=== PATIENT | male | born 1930 | race Caucasian/White ===

== ENCOUNTER 2018-06-11 20:27 | Inpatient (IN) ==
[2018-06-11] MEDS ORDERED: SODIUM CHLORIDE 1,000 ML IV STA (20:29)
--- NOTE | 2018-06-11 21:15 | ED.PDOC ---
General ED Provider: Dr. NIRMAL GRIFFIN Chief Complaint: Weakness Stated Complaint: Patient is brought by family with weakness for the past few days. Also complains of mildly productive cough without shortness of breath. He also states that his appatite has been poor and blood glucose has been going up. Uses Oral hypoglycemia medications. Time Seen by Physician: 21:12 Mode of Arrival: Ambulance Information Source: Patient, EMT Primary Care Provider: JAYSON RODRIGUEZ Nursing and Triage Documentation Reviewed and Agree: Yes Does patient meet sepsis criteria?: No System Inflammatory Response Syndrome: Temp 101F or Greater Sepsis Protocol: For patient's 13 years and over: Temp is 96.8 and below OR 101 and greater Pulse >90 BPM Resp >20/minute Acutely Altered Mental Status Are patient's symptoms suggestive of a new infection, such as: -Pneumonia -Skin, Soft Tissue -Endocarditis -UTI -Bone, Joint Infection -Implantable Device -Acute Abdominal Infection -Wound Infection -Meningitis -Blood Stream Catheter Infection -Unknown Review of Systems - Review Of Systems Constitutional: Reports: Weakness Respiratory: Reports: Cough (mildly productive of clear sputum ). Denies: Short of air, Stridor, Wheezing Cardiac: Reports: No symptoms GI: Reports: No symptoms : Reports: No symptoms Musculoskeletal: Reports: Other (weakness ) Neurological: Reports: No symptoms All Other Systems: Reviewed and Negative Past Medical History - Past Medical History Endocrine: Reports: DM 2, Dyslipidemia Cardiovascular: Reports: CAD, Hypertension, CHF Respiratory: Reports: None Hematological: Reports: None Gastrointestinal: Reports: None Genitourinary: Reports: None Neuro/Psych: Reports: CVA Musculoskeletal: Reports: Arthritis, Gout Cancer: Reports: None - Surgical History General Surgical History: Reports: CABG (x2), Stent - Family History Family History: Reports: Unknown - Social History Smoking Status: Former smoker Hx Substance Use: No Alcohol Screening: None - Immunizations Tetanus Shot up to Date: No Physical Exam - Physical Exam Appearance: Ill-appearing (weak appering ) Eyes: Conjunctiva inflammed (bilaterally with matting ) Neck: Supple Respiratory: Airway patent, Breath sounds clear, Breath sounds equal, Respirations nonlabored Cardiovascular: RRR, Pulses normal, No rub, No murmur GI/: Soft, Nontender, No masses, Bowel sounds normal, No Organomegaly Musculoskeletal: Normal strength, ROM intact, No edema, No calf tenderness Skin: Warm, Dry, Normal color Neurological: Sensation intact, Motor intact, Reflexes intact, Cranial nerves intact, Alert, Oriented Psychiatric: Anxious Interpretation - Radiology Interpretation Radiology Interpretation By: Radiologist Radiology Results: Negative Exam Interpreted: Portable CXR - Auto Damage Estimator Rate: Normal Rhythm: Sinus - EKG Interpretation Rate: Normal Rhythm: Sinus Ectopy: None [place]: NL ST Segment: Normal Interpretation: Sinus rhythm with 1st degree AV block Critical Care Note - Critical Care Note Total Time (mins): 0 Course - Course Hematology/Chemistry: 06/12/18 04:30 06/12/18 04:30 Orders, Labs, Meds: Lab Review 06/11/18 06/11/18 06/11/18 20:42 20:42 20:42 WBC 7.21 RBC 4.06 L Hgb 11.6 L Hct 33.4 L MCV 82.3 MCH 28.6 MCHC 34.7 RDW Coeff of Edwige 12.0 Plt Count 99 L Immature Gran % (Auto) 0.3 Neut % (Auto) 82.4 Lymph % (Auto) 6.0 L Republic % (Auto) 11.1 H Eos % (Auto) 0.1 Baso % (Auto) 0.1 Immature Gran # (Auto) 0.0 Neut # (Auto) 5.9 Lymph # (Auto) 0.4 L Republic # (Auto) 0.8 Eos # (Auto) 0.0 Baso # (Auto) 0.0 Puncture Site O2 Saturation ABG pH ABG pCO2 ABG pO2 ABG HCO3 ABG Total CO2 ABG Base Excess Alvaro Test FiO2 % Sodium 125 L Potassium 4.2 Chloride 93 L Carbon Dioxide 23 Anion Gap 13.2 BUN 13 Creatinine 0.90 Estimated GFR (MDRD) 80.00 BUN/Creatinine Ratio 14.44 Glucose 233 H Calcium 9.8 Total Bilirubin 1.1 AST 28 ALT 24 Alkaline Phosphatase 126 H Total Creatine Kinase Troponin I 0.0130 Total Protein 6.5 Albumin 2.9 L Globulin 3.6 Albumin/Globulin Ratio 0.81 TSH 2.120 Free T4 1.12 06/11/18 06/11/18 20:47 21:09 WBC RBC Hgb Hct MCV MCH MCHC RDW Coeff of Edwige Plt Count Immature Gran % (Auto) Neut % (Auto) Lymph % (Auto) Republic % (Auto) Eos % (Auto) Baso % (Auto) Immature Gran # (Auto) Neut # (Auto) Lymph # (Auto) Republic # (Auto) Eos # (Auto) Baso # (Auto) Puncture Site Rr O2 Saturation 93.0 L ABG pH 7.408 ABG pCO2 35.4 ABG pO2 66.0 L ABG HCO3 22.4 ABG Total CO2 23 ABG Base Excess -2 Alvaro Test + FiO2 % 21.0 Sodium Potassium Chloride Carbon Dioxide Anion Gap BUN Creatinine Estimated GFR (MDRD) BUN/Creatinine Ratio Glucose Calcium Total Bilirubin AST ALT Alkaline Phosphatase Total Creatine Kinase 52 Troponin I Total Protein Albumin Globulin Albumin/Globulin Ratio TSH Free T4 Orders Category Date Time Status ABG DRAW REQUEST Routine CARDIO 06/11/18 21:09 Completed EKG-(ED ONLY) Stat CARDIO 06/11/18 21:25 Completed ED IV/MEDIPORT/POWERPORT .ONCE EMERGENCY 06/11/18 20:29 Active ABG Stat LAB 06/11/18 21:09 Completed CBC W/ AUTO DIFF Stat LAB 06/11/18 20:42 Completed CK [CREATINE KINASE] Stat LAB 06/11/18 20:47 Completed COMPREHENSIVE METABOLIC PANEL Stat LAB 06/11/18 20:42 Completed FREE T4 (FREE THYROXINE) Stat LAB 06/11/18 20:42 Completed THYROID STIMULATING HORMONE Stat LAB 06/11/18 20:42 Completed TROPONIN I Stat LAB 06/11/18 20:42 Completed 0.9 % Sodium Chloride [Saline Flush] MEDS 06/11/18 20:29 Ordered 1 syr IVF PRN PRN Ciprofloxacin Opth Lia [Cipro 0.3% Opth Lia] MEDS 06/11/18 21:36 Discontinued 1 drop OP ONCE STA Sodium Chloride 0.9% [Sodium Chloride] 1,000 ml MEDS 06/11/18 20:29 Discontinued IV BOLUS CHEST, 1V AP ONLY Stat RADS 06/11/18 21:10 Completed Medications Generic Name Dose Route Start Last Admin Trade Name Freq PRN Reason Stop Dose Admin Acetaminophen 650 mg 06/11/18 23:40 Tylenol PO Q4H PRN mild pain Albuterol/Ipratropium 1 vial 06/11/18 23:40 Duoneb NEB RTTID PRN dyspnea Ciprofloxacin 2 drop 06/12/18 06:00 06/12/18 05:49 Cipro 0.3% Opth Lia OP 2 drop 5XD JUAN MANUEL Administration Enoxaparin Sodium 40 mg 06/12/18 09:00 Lovenox SUBCUT DAILY JUAN MANUEL Gabapentin 300 mg 06/12/18 09:00 Neurontin PO BID JUAN MANUEL Sodium Chloride 1,000 mls @ 60 mls/hr 06/11/18 23:46 06/12/18 00:38 Sodium Chloride IV 60 mls/hr .[id number] JUAN MANUEL Administration Metoprolol Succinate 50 mg 06/12/18 09:00 Toprol Xl PO DAILY JUAN MANUEL Non-Formulary Medication 2.5 mg 06/12/18 09:00 Lisinopril [Zestril] PO DAILY JUAN MANUEL Non-Formulary Medication 40 mg 06/12/18 09:00 Esomeprazole Magnesium [Nexium] PO DAILY JUAN MANUEL Non-Formulary Medication 1,000 mg 06/12/18 09:00 Metformin Hcl [Metformin Hcl] PO BID JUAN MANUEL Simvastatin 40 mg 06/12/18 09:00 Zocor PO DAILY JUAN MANUEL Sodium Chloride 1 syr 06/11/18 20:29 Saline Flush IVF PRN PRN To flush IV Sucralfate 1 gm 06/12/18 06:30 06/12/18 05:49 Carafate PO 1 gm ACHS JUAN MANUEL Administration Discontinued Medications Generic Name Dose Route Start Last Admin Trade Name Freq PRN Reason Stop Dose Admin Ciprofloxacin 1 drop 06/11/18 21:36 06/11/18 21:44 Cipro 0.3% Opth Lia OP 06/11/18 21:37 1 drop ONCE STA Administration Sodium Chloride 1,000 mls @ 1,000 mls/hr 06/11/18 20:29 06/11/18 21:17 Sodium Chloride IV 06/11/18 21:28 1,000 mls/hr BOLUS STA Administration Sodium Chloride 1,000 mls @ 75 mls/hr 06/11/18 23:45 06/11/18 23:51 Sodium Chloride IV Not Given .[id number] [facility] Vital Signs: Temp Pulse Resp BP Pulse Ox 06/11/18 22:20 99.7 F H 71 20 128/56 L 93 L 06/11/18 21:20 78 22 126/45 L 93 L 06/11/18 21:14 97.7 F 06/11/18 20:39 101.5 F H 83 22 126/45 L 94 L Departure - Departure Time of Disposition: 00:10 Disposition: ADMITTED INPATIENT Discharge Problem: Hyponatremia syndrome, Muscle weakness, Acute bacterial conjunctivitis of both eyes Condition: Stable Pt referred to PMD for follow-up: Yes IPMP verified?: No Allergies/Adverse Reactions: Allergies No Known Allergies Allergy (Unverified 08/21/17 09:58) Home Medications: Ambulatory Orders Gabapentin 300 mg PO BID 07/21/14 Metformin HCl 1,000 mg PO BID 07/21/14 Metoprolol Succinate 50 mg PO DAILY #30 07/21/14 Esomeprazole Magnesium [Nexium] 40 mg PO DAILY 06/11/18 Lisinopril [Zestril] 2.5 mg PO DAILY 06/11/18 Simvastatin [Zocor] 40 mg PO DAILY 06/11/18 Sucralfate [Carafate] 1 gm PO ACHS 06/11/18
[2018-06-11] MEDS ORDERED: GENTAK OPTH SOL OP STA (21:21)
--- NOTE | 2018-06-11 21:34 | DI ---
EXAMINATION: AP portable chest radiograph. HISTORY: Cough FINDINGS: There is chronic blunting left costophrenic angle that is unchanged since 04/22/2008. Mi nimal chronic opacities are suggested in the left lung base. The aorta is atherosclerotic. The hear t is mildly enlarged. 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 The bones are intact. No pne umothorax or pleural effusions are detected. IMPRESSION: Probable chronic pleural reaction blunting left costophrenic angle with subjacent pulmonary parenchym al scarring. No acute on chronic infiltrate cannot be entirely excluded. Consider correlation with CT. Aortic atherosclerosis, cardiomegaly, and prior sternotomy.
[2018-06-11] MEDS ORDERED: CIPRO 0.3% OPTH SOL OP STA (21:36)
[2018-06-11] MEDS ORDERED: DUONEB NEB PRN (23:40)
[2018-06-11] MEDS ORDERED: TYLENOL PO PRN (23:40)
[2018-06-11] MEDS ORDERED: SODIUM CHLORIDE 1,000 ML IV SCH (23:45)
[2018-06-12] MEDS: SODIUM CHLORIDE 1,000 ML IV SCH ×2 (00:38→22:57)
[2018-06-12 01:29] VITALS: BMI 23.2
[2018-06-12] MEDS: CARAFATE PO SCH ×4 (05:49→20:04)
[2018-06-12] MEDS: CIPRO 0.3% OPTH SOL OP SCH ×5 (05:49→20:04)
[2018-06-12] MEDS ORDERED: DECADRON 4 MG/ML SDV IM STA (08:25)
[2018-06-12] MEDS ORDERED: NON-FORMULARY MEDICATION (Metformin Hcl [Metformin Hcl] 1,000 MG) PO SCH (09:00)
[2018-06-12] MEDS ORDERED: NON-FORMULARY MEDICATION (Esomeprazole Magnesium [Nexium] 40 MG) PO SCH (09:00)
[2018-06-12] MEDS ORDERED: NON-FORMULARY MEDICATION (Lisinopril [Zestril] 2.5 MG) PO SCH (09:00)
[2018-06-12] MEDS: ROCEPHIN 1 GM in SODIUM CHLORIDE 50 ML IV SCH (09:27)
[2018-06-12] MEDS: ZESTRIL PO SCH (09:30)
[2018-06-12] MEDS: TOPROL XL PO SCH (09:30)
[2018-06-12] MEDS: NEURONTIN PO SCH ×2 (09:31→20:04)
[2018-06-12] MEDS: GLUCOPHAGE PO SCH ×2 (09:31→16:42)
[2018-06-12] MEDS: PROTONIX PO SCH (09:31)
[2018-06-12] MEDS: ZOCOR PO SCH (09:31)
--- NOTE | 2018-06-12 09:32 | PCM.PROG ---
Attending Provider: ATTENDING PROVIDER: Dr. JAYSON RODRIGUEZ DATE OF SERVICE: 06/12/18 SUBJECTIVE: This 87 year old WHITE/ M was hospitalized 06/11/18 with weakness, hyponatremia, and mild cough. He is not able to walk on his own. Sodium level 125. Fever noted to be 101 in the ER. He is still weak but feeling somewhat better. Daughter is in the room. Kidney function is normal. REVIEW OF SYSTEMS: CONSTITUTIONAL: Weakness, fatigue. No night sweats. No malaise, lethargy. No fever or chills. HEENT: Eyes: No visual changes. No eye pain. No eye discharge. ENT: No runny nose. No epistaxis. No sinus pain. No odynophagia. No congestion. RESPIRATORY: No cough, no congestion. No hemoptysis. No shortness of breath. CARDIOVASCULAR: No angina symptoms. No CHF symptoms. No atypical chest pain for CAD. No palpitations. No orthopnea.. GASTROINTESTINAL: No abdominal pain. No nausea or vomiting. No diarrhea or constipation. No melena. No hematemesis. No hematochezia. GENITOURINARY: No urgency. No frequency. No dysuria. No hematuria. No obstructive symptoms. No discharge. No pain. No significant abnormal bleeding. MUSCULOSKELETAL: No musculoskeletal pain; no joint swelling. NEUROLOGICAL: Awake, alert, oriented to time, place and person. No headache. No neck pain. No syncope. No seizures. No dizziness. PSYCHIATRIC: Not anxious. No depression. No suicidal thoughts. No homicidal thoughts. SKIN: No rash. No lesions. No wounds. ENDOCRINE: No unexplained weight loss. No weight gain. HEMATOLOGIC/LYMPHATIC: No anemia. No purpura. No petechiae. No prolonged or excessive bleeding. No palpable lymph nodes. PHYSICAL EXAMINATION: GENERAL: The patient is awake, alert and oriented, lying in bed in no distress. VITAL SIGNS: Temperature 98.1 F, Pulse 70, Respiratory Rate 21, BP 138/66, Pulse Ox 97% HEENT: Head normocephalic, atraumatic. Eyes: Extraocular muscles are intact. Pupils are equal, round and reactive to light and accommodation. Ears: No lesions. Nose appeared normal. Throat: No exudate or erythema. NECK: Supple. No JVD, no carotid bruit. No lymphadenopathy or thyromegaly. LUNGS: Clear to auscultation. Percussion note normal. Chest symmetrical. HEART: S1, S2, no S3. No murmurs. No cyanosis or clubbing. No ascites. Pulses: Dorsalis pedis and posterior tibial pulses +1 to +2 both sides. ABDOMEN: Soft. Non-tender. Bowel sounds active. No CVA tenderness. No mass felt. EXTREMITIES: No edema. Full range of motion of all extremities, equal. NEUROLOGIC: Stable. No neurological deficit. No focal deficit. Cranial nerves II through XII are grossly intact. No headache, no double vision or headache. SKIN: Warm and dry. Intact. Turgor-normal. LYMPHATIC: No palpable lymph nodes/no lymphedema. MUSCULOSKELETAL: Normal joints with no swelling. Muscle tone is normal. LAB REVIEW: 06/12/18 04:30 06/12/18 04:30 06/12/18 04:30: Sodium 130 L, Potassium 3.6, Chloride 98, Carbon Dioxide 25, Anion Gap 10.6, BUN 9, Creatinine 0.74, Estimated GFR (MDRD) 100.00, BUN/ Creatinine Ratio 12.16, Glucose 132 H D, Calcium 9.6 06/12/18 04:30: WBC 6.33, RBC 3.85 L, Hgb 10.9 L, Hct 31.9 L, MCV 82.9, MCH 28.3 , MCHC 34.2, RDW Coeff of Edwige 12.1, Plt Count 119 L, Immature Gran % (Auto) 0.2 , Neut % (Auto) 62.4, Lymph % (Auto) 24.6, Angelina % (Auto) 12.0 H, Eos % (Auto) 0.6, Baso % (Auto) 0.2, Immature Gran # (Auto) 0.0, Neut # (Auto) 4.0, Lymph # ( Auto) 1.6, Angelina # (Auto) 0.8, Eos # (Auto) 0.0, Baso # (Auto) 0.0 06/12/18 04:20: Urine Color Yellow, Urine Clarity Clear, Urine pH 6.0, Ur Specific [place]io 1.010, Urine Protein Negative, Urine Glucose (UA) Trace, Urine Ketones Negative, Urine Blood Negative, Urine Nitrite Negative, Urine Bilirubin Negative, Urine Urobilinogen 1.0, Ur Leukocyte Esterase Negative 06/11/18 21:09: Puncture Site Rr, O2 Saturation 93.0 L, ABG pH 7.408, ABG pCO2 35.4, ABG pO2 66.0 L, ABG HCO3 22.4, ABG Total CO2 23, ABG Base Excess -2, Alvaro Test +, FiO2 % 21.0 06/11/18 20:47: Total Creatine Kinase 52 06/11/18 20:42: TSH 2.120, Free T4 1.12 06/11/18 20:42: Sodium 125 L, Potassium 4.2, Chloride 93 L, Carbon Dioxide 23, Anion Gap 13.2, BUN 13, Creatinine 0.90, Estimated GFR (MDRD) 80.00, BUN/ Creatinine Ratio 14.44, Glucose 233 H, Calcium 9.8, Total Bilirubin 1.1, AST 28 , ALT 24, Alkaline Phosphatase 126 H, Troponin I 0.0130, Total Protein 6.5, Albumin 2.9 L, Globulin 3.6, Albumin/Globulin Ratio 0.81 06/11/18 20:42: WBC 7.21, RBC 4.06 L, Hgb 11.6 L, Hct 33.4 L, MCV 82.3, MCH 28.6 , MCHC 34.7, RDW Coeff of Edwige 12.0, Plt Count 99 L, Immature Gran % (Auto) 0.3, Neut % (Auto) 82.4, Lymph % (Auto) 6.0 L, Angelina % (Auto) 11.1 H, Eos % (Auto) 0.1 , Baso % (Auto) 0.1, Immature Gran # (Auto) 0.0, Neut # (Auto) 5.9, Lymph # ( Auto) 0.4 L, Angelina # (Auto) 0.8, Eos # (Auto) 0.0, Baso # (Auto) 0.0 ASSESSMENT: 1. HYPONATREMIA AND DEHYDRATION SEEMS TO BE RESOLVING 2. FEVER NOTED TO BE 101 IN THE ER. ON FURTHER QUESTIONING, THE PATIENT HAD YELLOW DRAINAGE FROM SINUSES WITH MILD COUGH, MAY HAVE PNEUMONITIS. WILL START ON ROCEPHIN AND GIVE 1 CC DECADRON DAILY IM, FIRST DOSE THIS A.M. PLAN: 1. Workup for any TIA or stroke with carotid scan and CT scan of head with contrast. 2. CT scan of chest with contrast will be done as followup to chest x-ray. 3. Continue IV fluids. 4. Will start PT. 5. Continue IV fluids. 6. Rocephin 1 gm 7. Regular diet. 8. Rocephin 1 gm IV. 9. Decadron 1 cc daily IM; first dose this a.m. Plan and coordination of the patient's care discussed in the presence of [employer] Employee and nurse. CONDITION: STABLE SCRIBED BY: JACOBO GIVENS Operations Controller scribed while in presence of service performed by Dr. JAYSON RODRIGUEZ on 06/12/18 ([id number])
[2018-06-12] MEDS: LOVENOX SUBCUT SCH (09:33)
--- NOTE | 2018-06-12 10:29 | CT ---
EXAM: CT chest with contrast. HISTORY: Shortness of breath. COMPARISON: Radiograph 06/11/2018. CT 05/06/2008. TECHNIQUE: Multiple axial images of the chest were obtained following intravenous administration of 100 mL of Omnipaque 350, low osmolar. Images were reformatted in the sagittal and coronal planes. FINDINGS: Right hilar lymph node measures 1.1 cm short axis on axial image 29. Subcarinal lymph nod e measures 1 cm short axis on axial image 33. Left hilar lymph node measures 1.4 cm short axis on ax ial image 32. There has been previous CABG. Heart size is normal. No pericardial effusion identifi ed. There is consolidation in the infrahilar left lower lobe which narrows the left lower lobe bronchus. Rounded consolidation in the lingula on axial image 42 measures 2.6 x 2.1 cm. There is dependent co nsolidation and ground-glass opacities in the right lower lobe. Right lower lobe nodular density arelis sures 1.2 x 0.9 cm on axial image 45. No pleural effusion or pneumothorax detected. Small hiatal hernia noted. No acute abnormality detected in the upper abdomen. Left shoulder arthro plasty changes noted. Old left rib fractures noted. Degenerative changes seen in the right shoulder . IMPRESSION: 1. Left infrahilar consolidation, narrowing the left lower lobe bronchus as well as lingular and rig ht lower lobe nodules could represent pneumonia although neoplasm not excluded. 2. Bilateral hilar and mediastinal lymphadenopathy. 3. CT follow-up in 4-6 weeks recommended for reassessment.
--- NOTE | 2018-06-12 10:32 | CT ---
EXAM: CT Head with contrast. HISTORY: Weakness. COMPARISON: 04/20/2010. TECHNIQUE: Multiple axial images of the brain were obtained from the skull base through the vertex f ollowing intravenous administration of 100 mL of Omnipaque 350, low osmolar. Multiplanar reformats we re provided. FINDINGS: There is no intracranial hemorrhage or extraaxial collection. The warner-white differentiat ion is maintained without evidence for acute large vascular territory infarction. Periventricular an d subcortical white matter low attenuation seen bilaterally. The cortical sulci and basal cisterns a re well visualized. No areas of abnormal enhancement are identified. There is no hydrocephalus, mas s effect, or midline shift. Moderate ethmoid sinus mucosal thickening noted. Mild maxillary sinus m ucosal thickening is also present. Polypoid soft tissue lesions in the nasal mucosa noted. Otherwis e, the paranasal sinuses and mastoid air cells are clear. The calvarium is intact. IMPRESSION: 1. No acute intracranial abnormality. 2. Chronic small vessel ischemic changes.
--- NOTE | 2018-06-12 10:56 | US ---
EXAM: ULTRASOUND CAROTID DUPLEX, BILATERAL HISTORY: Weakness, dizziness FINDINGS: Heredia-scale ultrasound, color Doppler and spectral analysis was performed. Velocities are in meters per second. By heredia scale and color Doppler imaging, there were regions of heterogeneous plaque formation identif ied within the carotid bulbs and internal carotid arteries. These regions of plaque appeared to appr oach at least 50% vessel diameter and are more noticeable on the right. RIGHT: External carotid artery peak systolic velocity: 1.4 Common carotid artery peak systolic velocity/end diastolic velocity: 0.7/0.1 Internal carotid artery peak systolic velocity: 1.9 ICA/CCA peak systolic velocity ratio: 2.8 ICA end diastolic velocity: 0.3 LEFT: External carotid artery peak systolic velocity: 1.0 Common carotid artery peak systolic velocity/end diastolic velocity: 0.0/0.1 Internal carotid artery peak systolic velocity: 1.5 ICA/CCA peak systolic velocity ratio: 1.5 ICA end diastolic velocity: 0.2 The right and left vertebral arteries were antegrade. IMPRESSION: 1. By heredia scale and color Doppler imaging, there were regions of heterogeneous plaque formation bryan ntified within the carotid bulbs and internal carotid arteries. These regions of plaque appeared to approach at least 50% vessel diameter and are more noticeable on the right. 2. The right internal carotid artery peak systolic velocity of 1.9 meters per second falls within th e moderate range of stenosis. Moderate indicates 50 - 69% vessel diameter. The right-sided ICA/CCA peak systolic velocity ratio correlates with this. 3. The left internal carotid artery peak systolic velocity of 1.5 meters per second falls within the moderate range of stenosis. The left-sided ICA/CCA peak systolic velocity ratio is more consistent with mild stenosis. Mild indicates less than 50% vessel diameter. 4. Both vertebral arteries were antegrade.
--- NOTE | 2018-06-12 13:43 | RS.OTINEVL ---
Subjective - Patient information Date of Evaluation: 06/12/18 Date of Arrival on Unit: 06/12/18 Admitted From:: Emergency Dept Usual Living Arrangement: Assisted Living. Living Arrangement Comments: Pt. is From [facility]. Home Environment: Apartment Medical History: Hypertension, CHF Medical History Comments:: Coronary Artery disease, SOB, CHF, L shoulder replaced, DDD, Gall bladder, HTN, CP, Hypercholesterol, Orthopnea, AO, osteoporosis, endocrine Disease, RA, Cardiomegally, eye infections. Surgical History: Shoulder Replacement Surgical History Comments:: Left shoulder replacement, Gallbladder Subjective Information/ Patient Comments:: "I use a cane." "I take my own shower." "I dress myself." - Level of function Current Equipment Used at Home: Cane Pain Assessment - Pain Pain Score: 0 Interventions - Objective Patient Orientation: Person, Place, Situation Current Interventions: IV's, Oxygen, Telemetry Observation: Pt using a RW to ambulate. Pt was minimal assistance to get out of the bed. Pt required CGA for walking with RW. Pt appears weak and not real steady on his feet. Pt would benefit from OT to increase strengthening and functional ADLS. Interventions - ROM Right Upper Extremity AROM: Slight limitation Left Upper Extremity AROM: Slight limitation - Strength Right Upper Extremity Strength: Mild Weakness Left Upper Extremity Strength: Mild Weakness - Sensation Right Upper Extremity Sensation: Intact/Normal Left Upper Extremity Sensation: Intact/Normal Balance - Sitting Balance Static Sitting Balance: Fair Dynamic Sitting Balance: Fair - Standing Balance Static Standing Balance: Fair Dynamic Standing Balance: Fair - Comments Balance Assessment Comments: Fair- ADL Skills - Self Feeding Self Feeding: Independent - Grooming Grooming: CGA - Bathing Bathing UE: CGA Bathing LE: CGA - Dressing Dressing UE: CGA Dressing LE: CGA - Toilet Management Toileting Management: CGA Functional Mobility - Bed Mobility Rolling R/L: Independent Scooting: Min Assist Supine to Sit: Min Assist Sit to Supine: Min Assist - Transfers Sit to Stand: Min Assist Stand to Sit: Min Assist Stand Pivot Transfers: Min Assist - Ambulation Weight Bearing Status: FWB Assistive Device Used: Rolling Walker Assistance needed with Ambulation: CGA - Safety Awareness Safety Awareness: Fair DAI INDEX SCORE: . Additional Treatment Performed - Time with patient Length of Evaluation: 20 Total treatment time: 24 Activities Patient Interests:: Watching Television, Visiting/Socializing Patient Education Patient Education: Home Exercise Program, Home Safety, Education of Plan of Care Teaching Recipient: Patient Teaching Methods: Teach Back Method Used, Discussion Assessment Problem List:: Decreased level of function, Decreased safety/Risk of falls, Weakness Rehab Potential: Good Further Therapy Indicated?: Yes Candidate for Swing Bed for Therapy Services?: no Evaluation Complexity: HISTORY: Low, EXAM OF BODY SYSTEMS: Low, CLINICAL DECISION MAKING: Low Short Term Goals - Goals GOAL 1: Pt to increase BUE strength is 4/5. Goal to be met by: 06/17/18 GOAL 2: Pt to increase activity tolerance to 15 minutes. Goal to be met by: 06/17/18 GOAL 3: Pt to increase dyn. std. balance to Fair+. Goal to be met by: 06/17/18 Capacitor Repairer Goals GOAL 1: Pt to increase BUE strength is 4+/5. Goal to be met by: 06/21/18 GOAL 2: Pt to increase activity tolerance to 20minutes. Goal to be met by: 06/21/18 GOAL 3: Pt to increase dyn. std. balance to G-/F+. Goal to be met by: 06/21/18 Plan Plan of Care: Therapeutic EX, Neuromuscular Re-Educ, Therapeutic Activity, Self- Care/Home Management Modalities: Hot Pack, Cold Pack/Cryotherapy Frequency of Treatment: 1-2 X day, as tolerated Duration of Treatment: 1 Week Anticipated Discharge Destination: Assisted Living Facility Treatment Diagnosis (ICD 10 Codes): Muscle Weakness M62.81. Has the Physician been added for Co-signature?: Yes
--- NOTE | 2018-06-12 13:52 | RS.PTINEVL ---
Subjective - Patient information Date of Evaluation: 06/12/18 Date of Arrival on Unit: 06/12/18 Admitted From:: Emergency Dept Diagnosis: hyponatremia syndrome, muscle weakness,acute bacterial conjunctivitis B eye Usual Living Arrangement: Assisted Living. Living Arrangement Comments: [facility] Home Environment: Apartment, Level/No stairs Medical History: Hypertension, CVA/TIA, Diabetes, CHF, Arthritis Medical History Comments:: gout, LATEX ALLERGY?: No Surgical History: Shoulder Replacement, CABG Surgical History Comments:: stent Medications: see chart Subjective Information/ Patient Comments:: pt states that he would like to sit up in chair. - Level of function Prior to this admission, the patient could do the following:: Independent Selfcare, Independent ADL's, Independent Ambulation Abilities prior to this admission: pt amb with cane at [facility] and was independent with ADL's Current Level of Function: Partially Dependent Current Equipment Used at Home: Cane Interventions - Objective Patient Orientation: Person, Place, Time, Situation Current Interventions: IV's, Oxygen, Telemetry Range of Motion - ROM Right Upper Extremity AROM: WFL's Left Upper Extremity AROM: WFL's Right Lower Extremity AROM: WFL's Left Lower Extremity AROM: WFL's Muscle Strength - Muscle Strength Right Upper Extremity Strength: Mild Weakness (grossly 4/5) Left Upper Extremity Strength: Mild Weakness (grossly 4/5) Right Lower Extremity Strength: Mild Weakness (hip flex 4-/5, knee flex/ext 4/5 , ankle Df/PF 4/5) Left Lower Extremity Strength: Mild Weakness (hip flex 4-/5, knee flex/ext 4/5, ankle Df/PF 4/5) Sensation - Sensation Right Upper Extremity Sensation: Intact/Normal Left Upper Extremity Sensation: Intact/Normal Right Lower Extremity Sensation: Intact/Normal Left Lower Extremity Sensation: Intact/Normal Palpation Palpation Findings: None/Normal Balance - Sitting Balance and Reactions Static Sitting Balance: Good Dynamic Sitting Balance: Fair Sitting Equilibrium Reactions: Delayed Left, Delayed Right Sitting Protective Reactions: Delayed Left, Delayed Right - Standing Balance and Reactions Static Standing Balance: Poor Dynamic Standing Balance: Poor Standing Equilibrium Reactions: Delayed Left, Delayed Right Standing Protective Reactions: Delayed Left, Delayed Right Functional Mobility - Bed Mobility Rolling R/L: CGA Supine to Sit: Min Assist - Transfers Sit to Stand: Min Assist Stand to Sit: Min Assist - Safety Awareness Safety Awareness: Fair DAI INDEX SCORE: n/a Ambulation - Ambulation Assistive Device Used: Rolling Walker Orthotic/Prosthetic Device: No Distance: 100ft Assistance needed with Ambulation: CGA Gait Deviations: Forward posture, Short stride Ambulation Comments: pt amb with decreased step length and flexed posture. O2 sats 97% after amb without O2 Factors Affecting Ambulation: Decreased Balance, Weakness, Decreased Safety, Limited Endurance Treatment time - Units charged Gait trainin - Time with patient Length of Evaluation: 18 Total treatment time: 33 Patient Education - Education Patient Education: Activity Modification, Education of Plan of Care Teaching Recipient: Patient Teaching Methods: Discussion, Demonstration (discussion and demonstration of safety with transfers and gait.) Assessment - Assessment Problem List:: Decreased level of function, Requires training/education, Decreased safety/Risk of falls, Weakness Rehab Potential: Good Further Therapy Indicated?: Yes Candidate for Swing Bed for Therapy Services?: pt may be candidate for swing bed unless becomes higher level of function Evaluation Complexity: HISTORY: Medium (OA, CHF, HTN, DM), EXAM OF BODY SYSTEMS : Medium (gait, transfers, posture, balance), CLINICAL PRESENTATION: Medium ( evolving), CLINICAL DECISION MAKING: Medium Short Term Goals GOAL #1: pt perform rolling and scooting up in bed independently Goal to be met by: 06/14/18 GOAL #2: Transfer sup to/from sit to/from stand CGA to SBA Goal to be met by: 06/14/18 GOAL #3: pt amb with rwx 140ft with CGA with no LOB Goal to be met by: 06/14/18 GOAL #4: pt with improved BLE strength 4 to 4+/5 Goal to be met by: 06/14/18 Half-Way Goals GOAL #1: pt transfer sup to/from sit to/from stand independently Goal to be met by: 06/18/18 GOAL #2: pt amb with AAD functional household distances with SBA with no LOB Goal to be met by: 06/18/18 GOAL #3: Improve dyn stand balance as noted by no LOB with gait and improved posture Goal to be met by: 06/18/18 Plan Plan of Care: Therapeutic EX, Therapeutic Activity Other:: gait training Frequency of Treatment: 1-2 X day, as tolerated Duration of Treatment: 6 days Anticipated Discharge Destination: Home Treatment Diagnosis (ICD 10 Codes): R 26.2 difficulty walking. R 26.81 balance impaired. M62.81 general weakness Has the Physician been added for Co-signature?: Yes
[2018-06-13] MEDS: CARAFATE PO SCH ×4 (06:00→20:17)
[2018-06-13] MEDS: PROTONIX PO SCH (06:00)
[2018-06-13] MEDS: CIPRO 0.3% OPTH SOL OP SCH ×5 (06:01→20:17)
--- NOTE | 2018-06-13 08:56 | PCM.PROG ---
Attending Provider: ATTENDING PROVIDER: Dr. JAYSON RODRIGUEZ This patient is seen with Afia Luis, Nurse Practitioner. DATE OF SERVICE: 06/13/18 SUBJECTIVE: This 87 year old WHITE/ M was hospitalized 06/11/18. The patient is sitting in chair, alert. He states he is feeling better. He has been working with therapy. He has not had a void since yesterday evening although has been drinking water. Will bladder scan this a.m. CT scan and carotids reviewed. Sodium improved from yesterday. Will continue to work with PT. REVIEW OF SYSTEMS: CONSTITUTIONAL: Weakness. No night sweats. No malaise, lethargy. No fever or chills. HEENT: Eyes: No visual changes. No eye pain. No eye discharge. ENT: No runny nose. No epistaxis. No sinus pain. No odynophagia. No congestion. RESPIRATORY: Cough. No congestion. No hemoptysis. No shortness of breath. CARDIOVASCULAR: No angina symptoms. No CHF symptoms. No atypical chest pain for CAD. No palpitations. No orthopnea.. GASTROINTESTINAL: No abdominal pain. No nausea or vomiting. No diarrhea or constipation. No hematemesis. No hematochezia. GENITOURINARY: No urgency. No frequency. No dysuria. No hematuria. No obstructive symptoms. No discharge. No pain. No significant abnormal bleeding. MUSCULOSKELETAL: No musculoskeletal pain; no joint swelling. NEUROLOGICAL: Awake, alert, oriented to time, place and person. No headache. No neck pain. No syncope. No seizures. No dizziness. PSYCHIATRIC: Not anxious. No depression. No suicidal thoughts. No homicidal thoughts. SKIN: No rash. No lesions. No wounds. ENDOCRINE: No unexplained weight loss. No weight gain. HEMATOLOGIC/LYMPHATIC: No anemia. No purpura. No petechiae. No prolonged or excessive bleeding. No palpable lymph nodes. PHYSICAL EXAMINATION: GENERAL: The patient is awake, alert and oriented, sitting in chair in no distress. VITAL SIGNS: Temperature 98.5 F, Pulse 63, Respiratory Rate 16, BP 126/65, Pulse Ox 97% HEENT: Head normocephalic, atraumatic. Eyes: Extraocular muscles are intact. Pupils are equal, round and reactive to light and accommodation. Ears: No lesions. Nose appeared normal. Throat: No exudate or erythema. NECK: Supple. No JVD, no carotid bruit. No lymphadenopathy or thyromegaly. LUNGS: Diminished breath sounds. Clear to auscultation. Percussion note normal. Chest symmetrical. HEART: S1, S2, no S3. No murmurs. No cyanosis or clubbing. No ascites. Pulses: Dorsalis pedis and posterior tibial pulses +1 to +2 both sides. ABDOMEN: Soft. Non-tender. Bowel sounds active. No CVA tenderness. No mass felt. EXTREMITIES: No edema. Full range of motion of all extremities, equal. NEUROLOGIC: No focal deficit. Cranial nerves II through XII are grossly intact. No headache, no double vision or headache. SKIN: Not dry. Intact. Turgor-normal. LYMPHATIC: No palpable lymph nodes/no lymphedema. MUSCULOSKELETAL: Normal joints with no swelling. Muscle tone is normal. LAB REVIEW: 06/13/18 04:45 06/13/18 04:45 06/13/18 04:45: Sodium 131 L, Potassium 4.2, Chloride 100, Carbon Dioxide 21 L, Anion Gap 14.2, BUN 15, Creatinine 0.81, Estimated GFR (MDRD) 90.00, BUN/ Creatinine Ratio 18.51, Glucose 147 H, Calcium 10.0 06/13/18 04:45: WBC 6.48, RBC 3.72 L, Hgb 10.5 L, Hct 30.8 L, MCV 82.8, MCH 28.2 , MCHC 34.1, RDW Coeff of Edwige 11.9, Plt Count 134 L, Immature Gran % (Auto) 0.3 , Neut % (Auto) 65.5, Lymph % (Auto) 23.8, [place] % (Auto) 10.2 H, Eos % (Auto) 0.2, Baso % (Auto) 0.0, Immature Gran # (Auto) 0.0, Neut # (Auto) 4.3, Lymph # ( Auto) 1.5, [place] # (Auto) 0.7, Eos # (Auto) 0.0, Baso # (Auto) 0.0 ASSESSMENT: 1. HYPONATREMIA AND DEHYDRATION SEEMS TO BE RESOLVING 2. LEFT PNEUMONIA, QUESTIONABLE PER CT 3. NO VOID IN 12 HOURS PLAN: 1. Zithromax 500 mg p.o. 2. Dietary consult today. 3. Bladder scan today. Plan and coordination of the patient's care discussed in the presence of Environmental Services Aide and nurse. CONDITION: Stable SCRIBED BY: JACOBO GIVENS Sales Broker scribed while in presence of service performed by Dr. Rodriguez/Afia Luis APRN on 06/13/18 ([id number])
[2018-06-13] MEDS: ZESTRIL PO SCH (09:56)
[2018-06-13] MEDS: ZITHROMAX PO SCH (09:56)
[2018-06-13] MEDS: GLUCOPHAGE PO SCH ×2 (09:56→17:01)
[2018-06-13] MEDS: ZOCOR PO SCH (09:56)
[2018-06-13] MEDS: TOPROL XL PO SCH (09:56)
[2018-06-13] MEDS: NEURONTIN PO SCH ×2 (09:56→20:17)
[2018-06-13] MEDS: LOVENOX SUBCUT SCH (09:57)
[2018-06-13] MEDS: ROCEPHIN 1 GM in SODIUM CHLORIDE 50 ML IV SCH (10:02)
[2018-06-13] MEDS: FLOMAX PO SCH (13:13)
[2018-06-13] MEDS: DECADRON 4 MG/ML SDV IM SCH (13:13)
[2018-06-13] MEDS: SODIUM CHLORIDE 1,000 ML IV SCH (20:17)
[2018-06-14] MEDS: CIPRO 0.3% OPTH SOL OP SCH ×2 (05:43→08:37)
[2018-06-14] MEDS: PROTONIX PO SCH (05:43)
[2018-06-14] MEDS: CARAFATE PO SCH ×2 (05:43→11:08)
[2018-06-14] MEDS: ROCEPHIN 1 GM in SODIUM CHLORIDE 50 ML IV SCH (08:37)
[2018-06-14] MEDS: ZOCOR PO SCH (08:37)
[2018-06-14] MEDS: FLOMAX PO SCH (08:38)
[2018-06-14] MEDS: DECADRON 4 MG/ML SDV IM SCH (08:38)
[2018-06-14] MEDS: GLUCOPHAGE PO SCH (08:38)
[2018-06-14] MEDS: ZESTRIL PO SCH (08:38)
[2018-06-14] MEDS: ZITHROMAX PO SCH (08:38)
[2018-06-14] MEDS: TOPROL XL PO SCH (08:38)
[2018-06-14] MEDS: NEURONTIN PO SCH (08:38)
[2018-06-14] MEDS: LOVENOX SUBCUT SCH (08:39)
--- NOTE | 2018-06-14 11:04 | PCM.PROG ---
Attending Provider: ATTENDING PROVIDER: Dr. JAYSON RODRIGUEZ This patient is seen with Afia Luis, Nurse Practitioner. DATE OF SERVICE: 06/14/18 SUBJECTIVE: This 87 year old WHITE/ M was hospitalized 06/11/18. The patient is sitting in chair, alert. He states he feels like going home. He has been walking 150 feet. He is voiding with no problem after starting Flomax. He is eating well. Still with cough. REVIEW OF SYSTEMS: CONSTITUTIONAL: No night sweats. No fatigue, malaise, lethargy. No fever or chills. HEENT: Eyes: No visual changes. No eye pain. No eye discharge. ENT: No runny nose. No epistaxis. No sinus pain. No odynophagia. No congestion. RESPIRATORY: Cough with crackles left lower lobe. No hemoptysis. No shortness of breath. CARDIOVASCULAR: No angina symptoms. No CHF symptoms. No atypical chest pain for CAD. No palpitations. No orthopnea.. GASTROINTESTINAL: No abdominal pain. No nausea or vomiting. No diarrhea or constipation. No hematemesis. No hematochezia. GENITOURINARY: No urgency. No frequency. No dysuria. No hematuria. No obstructive symptoms. No discharge. No pain. No significant abnormal bleeding. MUSCULOSKELETAL: No musculoskeletal pain; no joint swelling. NEUROLOGICAL: Awake, alert, oriented to time, place and person. No headache. No neck pain. No syncope. No seizures. No dizziness. PSYCHIATRIC: Not anxious. No depression. No suicidal thoughts. No homicidal thoughts. SKIN: No rash. No lesions. No wounds. ENDOCRINE: No unexplained weight loss. No weight gain. HEMATOLOGIC/LYMPHATIC: No anemia. No purpura. No petechiae. No prolonged or excessive bleeding. No palpable lymph nodes. PHYSICAL EXAMINATION: GENERAL: The patient is awake, alert and oriented, lying/sitting in bed in no distress. VITAL SIGNS: Temperature 97.9 F, Pulse 51, Respiratory Rate 18, BP 106/47, Pulse Ox 96% HEENT: Head normocephalic, atraumatic. Eyes: Extraocular muscles are intact. Pupils are equal, round and reactive to light and accommodation. Ears: No lesions. Nose appeared normal. Throat: No exudate or erythema. NECK: Supple. No JVD, no carotid bruit. No lymphadenopathy or thyromegaly. LUNGS: Diminished breath sounds, crackles on the left lower lobe. Percussion note normal. Chest symmetrical. HEART: S1, S2, no S3. No murmurs. No cyanosis or clubbing. No ascites. Pulses: Dorsalis pedis and posterior tibial pulses +1 to +2 both sides. ABDOMEN: Soft. Non-tender. Bowel sounds active. No CVA tenderness. No mass felt. EXTREMITIES: No edema. Full range of motion of all extremities, equal. NEUROLOGIC: No focal deficit. Cranial nerves II through XII are grossly intact. No headache, no double vision or headache. SKIN: Not dry. Intact. Turgor-normal. LYMPHATIC: No palpable lymph nodes/no lymphedema. MUSCULOSKELETAL: Normal joints with no swelling. Muscle tone is normal. LAB REVIEW: 06/14/18 04:15 06/14/18 04:15 06/14/18 04:15: Sodium 131 L, Potassium 4.3, Chloride 102, Carbon Dioxide 20 L, Anion Gap 13.3, BUN 14, Creatinine 0.70, Estimated GFR (MDRD) 107.00, BUN/ Creatinine Ratio 20.00, Glucose 173 H, Calcium 9.5 06/14/18 04:15: WBC 6.39, RBC 3.63 L, Hgb 10.3 L, Hct 29.8 L, MCV 82.1, MCH 28.4 , MCHC 34.6, RDW Coeff of Edwige 11.9, Plt Count 138 L, Immature Gran % (Auto) 0.3 , Neut % (Auto) 69.9, Lymph % (Auto) 21.4, [place] % (Auto) 8.0, Eos % (Auto) 0.2, Baso % (Auto) 0.2, Immature Gran # (Auto) 0.0, Neut # (Auto) 4.5, Lymph # (Auto ) 1.4, [place] # (Auto) 0.5, Eos # (Auto) 0.0, Baso # (Auto) 0.0 ASSESSMENT: 1. HYPONATREMIA AND DEHYDRATION SEEMS TO BE RESOLVING 2. LEFT PNEUMONIA, QUESTIONABLE PER CT PLAN: 1. Echo to be done today. 2. Keflex 500 t.i.d. times 7 days. 3. Prednisone 10 mg b.i.d. for 5 days. 4. Discuss fluid intake in moderation. 5. Discharge back to assisted living. Plan and coordination of the patient's care discussed in the presence of Licensed Pharmacist and nurse. CONDITION: Stable SCRIBED BY: JACOBO GIVENS Farm Equipment Mechanic Apprentice scribed while in presence of service performed by Dr. Rodriguez/Afia Luis APRN on 06/14/18 ([id number])
[2018-06-14 11:10] VITALS: BP 126/79; TEMP 97.7
--- NOTE | 2018-06-14 12:12 | CM.DICTOOL ---
ADMISSION: 06/11/18 23:19 DISCHARGE: JUNE 14, 2018 DATE OF SERVICE: 06/14/18 FINAL DIAGNOSIS HYPONATREMIA (SODIUM 125 ON ADMISSION) DEHYDRATION PNEUMONIA, LEFT LUNG PER CT FEVER WEAKNESS DIABETES MELLITUS, TYPE 2 GERD ANEMIA CONJUNCTIVITIS, BOTH EYES LEFT SHOULDER ARTHROPLASTY,1196 CHOLECYSTECTOMY OPEN HEART (CABG AND STENT APPLICATION) 2003 LAST VITALS Temp Pulse Resp BP Pulse Ox 97.7 F 78 14 126/79 99 06/14/18 11:09 06/14/18 11:09 06/14/18 11:09 06/14/18 11:09 06/14/18 11:09 TAKE THESE MEDICATIONS AT HOME Ciprofloxacin (Cipro 0.3% Opth Lia) 2 drop OP 3XD [facility] Last Admin: 06/14/18 08:37 Dose: 2 drop Gabapentin (Neurontin) 300 mg PO BID [facility] Last Admin: 06/14/18 08:38 Dose: 300 mg Lisinopril (Zestril) 2.5 mg PO DAILY [facility] Last Admin: 06/14/18 08:38 Dose: 2.5 mg Metformin HCl (Glucophage) 1,000 mg PO BIDWM [facility] Last Admin: 06/14/18 08:38 Dose: 1,000 mg Metoprolol Succinate (Toprol Xl) 50 mg PO DAILY [facility] Last Admin: 06/14/18 08:38 Dose: 50 mg Esomeprazole Magnesium (Nexium) 40 mg PO QDAC [facility] Last Admin: 06/14/18 05:43 Dose: 40 mg Simvastatin (Zocor) 40 mg PO DAILY [facility] Last Admin: 06/14/18 08:37 Dose: 40 mg Sucralfate (Carafate) 1 gm PO ACHS [facility] Last Admin: 06/14/18 11:08 Dose: 1 gm Tamsulosin HCl (Flomax) 0.4 mg PO DAILY [facility] Last Admin: 06/14/18 08:38 Dose: 0.4 mg Keflex 500 mg TID [facility] for 7 days Last Admin: Prednisone 10 mg BID [facility] for 5 days Last Admin: ALLERGIES No Known Allergies Allergy (Unverified 08/21/17 09:58) DISCONTINUED MEDICATIONS None NEW PRESCRIPTIONS: Flomax 0.4 mg Daily Keflex 500 mg TID for 7 days Prednisone 10 mg BID for 5 days take with food SMOKING: Not Applicable DISEASE SPECIFIC EDUCATION: Prescriptions Steroid use and risk of GI irritation/bone demineralization Nutrition Activity Hydration/fluid intake LAB REVIEW: 06/14/18 04:15 06/14/18 04:15 06/14/18 04:15: Sodium 131 L, Potassium 4.3, Chloride 102, Carbon Dioxide 20 L, Anion Gap 13.3, BUN 14, Creatinine 0.70, Estimated GFR (MDRD) 107.00, BUN/ Creatinine Ratio 20.00, Glucose 173 H, Calcium 9.5 06/14/18 04:15: WBC 6.39, RBC 3.63 L, Hgb 10.3 L, Hct 29.8 L, MCV 82.1, MCH 28.4 , MCHC 34.6, RDW Coeff of Edwige 11.9, Plt Count 138 L, Immature Gran % (Auto) 0.3 , Neut % (Auto) 69.9, Lymph % (Auto) 21.4, [place] % (Auto) 8.0, Eos % (Auto) 0.2, Baso % (Auto) 0.2, Immature Gran # (Auto) 0.0, Neut # (Auto) 4.5, Lymph # (Auto ) 1.4, [place] # (Auto) 0.5, Eos # (Auto) 0.0, Baso # (Auto) 0.0 PLAN: Discharge home to [facility] Diet: Consistent Carbohydrates Water encouraged in moderation only Activity: Resume as tolerated. Use cane or walker as needed Continue to ambulate frequently at [facility] Exercises as given by physical therapy at least 2-3 times a day An appointment is scheduled with Dr. Royal/Afia Luis APRN on June 20 at 11:45 Mr. Nava is a full code Mr. Nava is alert and oriented x 3. He is independent with Activities of Daily Living. Mr. Nava transfers from the bed to the chair without assistance. He is ambulatory with use of a rolling walker and CGA at distances from 140-750 feet. His gait is steady and he reports less weakness while walking. Meal intakes are good at 10-100%. He is continent of bowel and bladder. Skin is intact and free of decubitus ulcers. An area of ecchymosis is noted to the right elbow. Mr. Nava has a cane and a walker at home for his use if needed. Kiel Royal MD Afia Luis APRN
--- NOTE | 2018-06-14 13:30 | HP ---
DATE OF SERVICE: 06/12/18 REASON FOR HOSPITALIZATION/HISTORY OF PRESENT ILLNESS: This is an 87 year old white male who brought in by the family to the emergency room complaining of weakness for the past few days. He also a mildly productive cough, no shortness of breath. His sugar has been fluctuating at home. Low grade fever. PAST MEDICAL HISTORY: Cardiac cath in 2014, he sees Dr. Arreaga every 6 months Anxiety Hypertension LVH Diabetes mellitus type 2 Neuropathy COPD BPH Dyslipidemia DJD spine PVC Fraser's Esophagus PAST SURGICAL HISTORY: CABG Cardiac cath 2014 REVIEW OF SYSTEMS: CONSTITUTIONAL: No night sweats. Fatigue. Fever. Generalized weakness. HEENT: Eyes: No visual changes. No eye pain. No eye discharge. ENT: No runny nose. No epistaxis. No sinus pain. No sore throat. No odynophagia. No ear pain. No congestion. RESPIRATORY: Productive cough, no congestion. No hemoptysis. No shortness of breath. CARDIOVASCULAR: No angina symptoms. No CHF symptoms. No atypical chest pain for CAD. No palpitations. No PND. No orthopnea. GASTROINTESTINAL: No abdominal pain. No nausea or vomiting. No diarrhea or constipation. No hematemesis. No hematochezia. GENITOURINARY: No urgency. No frequency. No dysuria. No hematuria. No obstructive symptoms. No discharge. No pain. No significant abnormal bleeding. MUSCULOSKELETAL: No musculoskeletal pain. No joint swelling. No arthritis. NEUROLOGICAL: No headache. No neck pain. No syncope. No seizures. No dizziness. PSYCHIATRIC: Not anxious. No depression. No suicidal thoughts. No homicidal thoughts. SKIN: No rash. No lesions. No wounds. ENDOCRINE: No unexplained weight loss. No weight gain. HEMATOLOGIC/LYMPHATIC: No anemia. No purpura. No petechiae. No prolonged or excessive bleeding. No palpable lymph nodes. PERSONAL/FAMILY/SOCIAL HISTORY: The patient's Pily is in [place] and he is current lives in the Assisted Living. He is a nonsmoker, no alcohol or illicit drug use. MEDICATIONS: Metformin 1,000mg PO twice a day Metoprolol 50mg PO daily Gabapentin 300mg Po twice a day Zocor 40mg PO daily Carafate 1gram PO ACHS Zestril 2.5mg PO daily Nexium 40mg PO daily ALLERGIES: No known allergies PHYSICAL EXAMINATION: VITAL SIGNS: Temperature 101.5, heart rate 83, respiratory rate 22, blood pressure 126/45 and pulse ox 93%. HEENT: Head normocephalic, atraumatic. Eyes: Extraocular muscles are intact. Pupils are equal, round and reactive to light and accommodation. Ears: No lesions. Nose appeared normal. Throat: No exudate or erythema. NECK: Supple. No JVD, no carotid bruit. No lymphadenopathy or thyromegaly. LUNGS: Clear to auscultation. Percussion note normal. Chest symmetrical. HEART: S1, S2, no S3. No murmurs. No cyanosis or clubbing. No ascites. Pulses: Dorsalis pedis and posterior tibial pulses +1 to +2 bilaterally. ABDOMEN: Soft. Nontender. Bowel sounds active. No CVA tenderness. No mass felt. EXTREMITIES: No edema. Full range of motion of all extremities, equal. NEUROLOGIC: No focal deficit. Cranial nerves II through XII are grossly intact. No headache, no double vision or headache. SKIN: Not dry. Intact. Turgor - normal. LYMPHATIC: No palpable lymph nodes/no lymphedema. MUSCULOSKELETAL: Normal joints with no swelling. Muscle tone is normal. LABS: WBC 6.33, hgb 10.9, hct 31.9, plt count 119, sodium 130, potassium 3.6, BUN 9, creatinine 0.74, glucose 132, AST 28, ALT 24, Alkaline phosphatase 126, total protein 6.5, TSH 2.12, T4 1.12, ABG's on room air 93, pH 7.408, pCO2 35.4, pO2 66, bicarb 22.4, total Co2 23, base excess of negative 2. Chest x-ray shows probable chronic pleural reaction blunting left costophrenic angle with subjacent pulmonary parenchymal scarring. No acute on chronic infiltrate can not be entirely excluded. ASSESSMENT: 1. Acute generalized weakness. 2. Bacterial conjunctivitis of both eyes 3. Hyponatremia 4. Dehydration 5. Acute pneumonitis 6. Hypertension 7. LVH 8. Diabetes Mellitus type 2 9. COPD 10.Neuropathy 11.Dyslipidemia 12.DJD spine PLAN: 1. We will admit 2. Routine telemetry orders 3. CBC and CMP daily 4. We will do CT scan of the chest 5. Continue home medications 6. Start on normal saline IV at 60 cc an hour 7. Rocephin 1 gram IV daily 8. DUO NEBS Q 6 hours 9. Start Cipro Ophthalmic solution three times a day 10.CT scan of the head 11.Check last echo 12.Carotid scan Will follow closely. TIME SPENT: More than 70 minutes. MTDD
--- NOTE | 2018-06-14 14:30 | PN ---
DATE OF SERVICE: 06/13/18 SUBJECTIVE: The patient was seen and examined with Nurse Practitioner. The patient's hyponatremia has been resolving. He is feeling better and he is up and about. There is question of probable pneumonitis which has been treated with antibiotics and steroids. He is feeling better, he is stronger and walking around up and about. The daughter is in the room. CONDITION: Stable. TIME SPENT: More than 30 minutes. Plan and coordination of the patient's care discussed in the presence of nurse. MEGHAN
--- NOTE | 2018-06-14 14:33 | PN ---
DATE OF SERVICE: 06/14/18 SUBJECTIVE: The patient was hospitalized with cough and congestion with possibility of pneumonia with bronchitis and hyponatremia. The patient's conditions all have practically resolving clinically. Serum sodium level is better. The patient is up and about. He is urinary retention type of symptoms has resolved and he is able to go to the bathroom without any problem. He is on Flomax. The patient is going to be discharged on antibiotics and steroids. Echo was done today which showed normal LV contractility, LVH and enlarged LA cavity. The patient was seen and examined with Nurse Practitioner. The patient's condition is stable. The patient's daughter was in the room when I did the echo and the reports were discussed with the patient. CONDITION: Stable. TIME SPENT: More than 30 minutes. Plan and coordination of the patient's care discussed in the presence of nurse. MEGHAN
--- NOTE | 2018-06-14 14:34 | PN ---
06/11/18: Level 5 06/12/18: Intermediate 06/13/18: Intermediate 06/14/18: D as in discharge MTDD
--- NOTE | 2018-06-16 08:03 | ECHO2D ---
Date of Exam: 06/14/18 Ordering Physician: DR. JAYSON RODRIGUEZ Room #: 102 Reason for Echo: WEAKNESS, CABG M-Mode Normal Adult Results LV Dimensions Normal Adult Results AoV Opening excursions >1.6 >1.6 LVEDD-base- 3.5-5.8 4.9 Ao root dimensions 2.0-3.7 3.6 LVESD-base- 3.1-4.6 L. Atrium dimensions 1.9-3.8 5.3 Post. Wall thickness 0.8-1.1 1.5 IV septum (thickness) 0.7-1.2 1.5 Post. Wall excursion 0.72-1.3 NORMAL Septal motion 0.3 Systolic motion R. Ventricular cavity 1.5-2.0 NORMAL LVEF 60% 62% Paradoxical septal wall motion NORMAL 2-D : ENLARGED LEFT ATRIAL CAVITY--HYPOKINETIC SEPTUM--NORMAL VALVES--NO EFFUSION, NO THROMBUS M-MODE: MV: NORMAL AV: NORMAL TV: NORMAL PV: CHAMBER SIZE: ENLARGED LEFT ATRIAL CAVITY WALL MOTION: HYPOKINETIC SEPTUM PERICARDIUM: NORMAL INTERPRETATION: 1. LEFT VENTRICULAR HYPERTROPHY WITH ENLARGED LEFT ATRIAL CAVITY 2. HYPOKINETIC SEPTUM 3. LEFT VENTRICULAR EJECTION FRACTION NORMAL MTDD
--- NOTE | 2018-06-17 14:33 | DS ---
DATE OF SERVICE: 06/14/18 FINAL DIAGNOSIS: 1. Hyponatremia (sodium 125 on admission) 2. Dehydration 3. Pneumonia, left lung per CT 4. Fever 5. Weakness 6. Diabetes Mellitus, type 2 7. GERD 8. Anemia 9. Conjunctivitis, both eyes 10.Left shoulder arthroplasty, 1995 11.Cholecystectomy 12.Open Heart (CABG and Stent application) 2003 LAST VITAL: Temperature 97.7, pulse 78, respiratory rate 14, blood pressure 126/79 and pulse ox 99%. DISCHARGE INSTRUCTIONS: Discharge home to [facility]. An appointment is scheduled with Dr. Royal/ Afia Luis APRN on June 20 at 11:45. Mr. Nava is full code. MEDICATIONS AT DISCHARGE: Cipro 2 drop OP three times a day JUAN MANUEL Neurontin 300mg PO twice a day Zestril 2.5mg Po daily Glucophage 1000mg PO twice a day Toprol XL 50mg PO daily Nexium 40mg PO QDAC Zocor 40mg PO daily Carafate 1gram PO ACHS Flomax 0.4mg PO daily Keflex 500mg PO three times a day Prednisone 10ng PO twice a day ALLERGIES: NO known allergies NEW PRESCRIPTIONS: Flomax 0.4mg daily Keflex 500mg three times a day for 7 days Prednisone 10mg PO twice a day for 5 days take with food. DIET INSTRUCTIONS: Consistent Carbohydrates Water encouraged in moderation only ACTIVITY: Resume as tolerated. Use cane or walker as needed. Continue to ambulate frequently at [facility]. Exercises as given by physical therapy at least 2- 3 times a day. SMOKING: N/A DISEASE SPECIFIC EDUCATION: Prescriptions Steroid use and risk of GI irritation/bone demineralization Nutrition Activity Hydration/fluid intake HOSPITAL COURSE: This is an 87 year old white male who brought to the emergency room with worsening weakness over the past several days. He was running of fever of 101. His sodium was extremely low at 125. Chest x-ray was normal however due to his fever and he stated that he had a productive cough a Chest CT showed that he had left lobe pneumonia. He was admitted and placed on normal saline at 75cc an hour. He was started on Rocephin 1 gram IV daily. On the second day I started him in Zithromax 500mg PO daily for three days. We started him on DUO NEBS Q 6 hours scheduled. He also had some bilateral conjunctivitis when he presented to the emergency room with yellowish drainage and red conjunctiva he was placed on Cipro Epithalamic drops five times a day. He has received 4mg of Decadron IM daily. Over the course of the past few days he has significantly improved as far as weakness. His sodium has been steady at 131 for the past two days after discontinuing his IV fluids. He has been eating 50-75% of his meals. His cough has become more productive and is improving and less frequent. Two day prior to discharge in the night he stated that he got up and was unable to void. He felt like he needed to go but couldn't void. A bladder scan was done yesterday morning which showed he had about 600cc of fluid left in his bladder. We plan to do an in and out cath however prior to this he stated was able to void. We started him on Flomax 0.4mg and he reported to me this morning that he has been urinating with no problem and no hesitation at all. His blood pressure is slightly lower however this is likely due to the Flomax. We discussed the possibility of dizziness and fall precautions with him. He does lives at [facility]. We will discharge him home today. Again, sodium is stabilized at 131. We have discussed with him not drinking too much fluid. We will send him home on Keflex 500mg three times a day for 7 days PO as well as Prednisone 10mg PO twice a day for 5 days. We will send him home on the Flomax. He does have a history of BPH. His weakness has improved. He has been walking 750 feet as of yesterday. We will send him back to Assisted Living in stable condition and followup next week. TIME SPENT: More than 60 minutes. MEGHAN
== END 2018-06-14 12:58 | disposition home or self-care (01) | DRG 640 ==
LOC: ED 20:27 → MEDSURG A 23:19
PROVIDERS: ADMIT Internal Medicine; ATTEND Internal Medicine
DX: E87.1 Hypo-osmolality and hyponatremia (principal); J18.9 Pneumonia, unspecified organism; I50.1 Left ventricular failure, unspecified; E86.0 Dehydration; H10.89 Other conjunctivitis; I10 Essential (primary) hypertension; E11.9 Type 2 diabetes mellitus without complications; J44.9 Chronic obstructive pulmonary disease, unspecified; G62.9 Polyneuropathy, unspecified; E78.5 Hyperlipidemia, unspecified; M47.9 Spondylosis, unspecified; I50.9 Heart failure, unspecified; K21.9 Gastro-esophageal reflux disease without esophagitis; D64.9 Anemia, unspecified
CPT/HCPCS: 36415; 80048; 80053; 81001; 82550; 82803; 82962; 84439; 84443; 84484; 85025; 87081; 93005; 93010; 96360; 96375; 97802; 99285

== ENCOUNTER 2021-01-18 10:50 | Inpatient (IN) ==
--- NOTE | 2021-01-18 11:18 | ED.PDOC ---
General ED Provider: Dr. SHAWNEE EWING Chief Complaint: Nausea/Vomiting Stated Complaint: nausea vomiting for a day Time Seen by Provider: 01/18/21 11:17 Mode of Arrival: Wheelchair Information Source: Patient Exam Limitations: No limitations Primary Care Provider: JAYSON RODRIUGEZ Nursing and Triage Documentation Reviewed and Agree: Yes Does patient meet sepsis criteria?: No System Inflammatory Response Syndrome: Not Applicable Sepsis Protocol: For patient's 13 years and over: Temp is 96.8 and below OR 101 and greater Pulse >90 BPM Resp >20/minute Acutely Altered Mental Status Are patient's symptoms suggestive of a new infection, such as: -Pneumonia -Skin, Soft Tissue -Endocarditis -UTI -Bone, Joint Infection -Implantable Device -Acute Abdominal Infection -Wound Infection -Meningitis -Blood Stream Catheter Infection -Unknown GI Complaint Exam Vomiting/Diarrhea Complaint/Exam Symptoms Are: Still present Episodes of Vomiting over last 24 Hours: 6 Episodes of Diarrhea Over Last 24 Hours: 0 Initial Severity: Moderate Current Severity: Moderate Character of Vomiting: Reports Non-bilious Aggravating: Reports None Alleviating: Reports None Associated Signs and Symptoms: Reports Abdominal pain and Cramping; Denies Dizziness, Light-headedness, Melena, Hematemesis and Fever Last Oral Intake: today Last Bowel Movement: last pm Non-GI Risk Factors: Reports None Surgical Obstruction Risk Factors: Reports None Related Surgical History: Reports None Abdominal Findings: Present None Rectal Exam: Present Other (defer) Prostate Exam: Nontender (defer) Kussmaul Respirations Present: No Differential Diagnoses: Bowel Obstruction, Viral Gastroenteritis, Bacterial Gastroenteritis and Pancreatitis Review of Systems Review Of Systems Constitutional: Reports No symptoms Eyes: Reports No symptoms Ears, Nose, Mouth, Throat: Reports No symptoms Respiratory: Reports No symptoms Cardiac: Reports No symptoms GI: Reports Nausea, Poor appetite and Vomiting : Reports Incontinence and Urgency Musculoskeletal: Reports No symptoms Skin: Reports No symptoms Neurological: Reports No symptoms Endocrine: Reports No symptoms Hematologic/Lymphatic: Reports No symptoms All Other Systems: Reviewed and Negative [facility] Medical History Cerumen impaction External otitis Hyperlipidemia Hypertension 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 Social History Smoking and tobacco status: Never smoker Alcohol intake: never Substance use type: does not use History of recent travel: No Physical Exam Physical Exam Appearance: Reports Ill-appearing Ill-appearing: Mild Pain Distress: Moderate Eyes: Reports NIXON ENT: Reports Oropharynx normal Neck: Supple Respiratory: Reports Airway patent and Breath sounds clear Cardiovascular: Reports RRR and Pulses normal GI/: Reports Soft, No masses, No Organomegaly (suprapubic pain) and Tender (bladder) Musculoskeletal: Reports Normal strength (for age) Skin: Reports Warm and Dry Neurological: Reports Sensation intact and Alert Psychiatric: Reports Affect appropriate and Mood appropriate Interpretation Radiology Interpretation Radiology Interpretation By: Radiologist Radiology Results: No acute changes Exam Interpreted: CT Scan (abdomen pelvis without, no acute change, BPH noted) Xray Comments: BPH Radiology Interpretation By: Radiologist Radiology Results: Negative Exam Interpreted: Portable CXR EKG Interpretation Time of EKG #1: 14:00 Rate: Normal Rhythm: Sinus Ectopy: None [place]: NL ST Segment: Normal Re-Evaluation Re-Evaluation Status: Improved Vital Signs Stable: Yes Lungs: Clear Skin: Warm and Dry Neuro: Alert and Oriented X3 CV: RRR Additional Comments: [place] much better after Nelson catheter placed, had PVR of about 600 ml. Physician Notification Case Discussed Physician Notified: Dr. Rodriguez Time of Notification: 14:00 Physician Notified: He will admit patient for urinary obstruction. Critical Care Note Critical Care Note Total Critical Care Time (mins): 0 Course Course Hematology/Chemistry: 01/18/21 11:50 01/18/21 11:50 Orders, Labs, Meds: Lab Review 01/18/21 01/18/21 01/18/21 11:15 11:50 11:50 WBC 6.59 RBC 4.01 L Hgb 11.7 L Hct 33.5 L MCV 83.5 MCH 29.2 MCHC 34.9 RDW Coeff of Edwige 12.2 Plt Count 123 L Immature Gran % (Auto) 0.3 Neut % (Auto) 54.6 Lymph % (Auto) 34.1 [place] % (Auto) 9.6 Eos % (Auto) 0.9 Baso % (Auto) 0.5 Neut # (Auto) 3.6 Lymph # (Auto) 2.3 [place] # (Auto) 0.6 Eos # (Auto) 0.1 Baso # (Auto) 0.0 Immature Gran # (Auto) 0.0 Puncture Site Base Excess O2 Saturation ABG pH ABG pCO2 ABG pO2 ABG HCO3 ABG Total CO2 Alvaro Test Hemoglobin Oxyhemoglobin Carboxyhemoglobin Total Hemoglobin O2 Delivery Device FiO2 % Sodium 129.2 L Potassium 3.83 Chloride 94.6 L Carbon Dioxide 27.8 Anion Gap 10.63 BUN 13.3 Creatinine 0.81 Estimated GFR (MDRD) 90.00 BUN/Creatinine Ratio 16.41 Glucose 152.2 H Calcium 9.98 Total Bilirubin 0.51 AST 31.7 ALT 12.0 Alkaline Phosphatase 91.0 Troponin I < 0.012 Total Protein 6.45 Albumin 3.67 Globulin 2.78 Albumin/Globulin Ratio 1.32 Amylase 61.7 Lipase 78.6 Urine Color Urine Clarity Urine pH Ur Specific [place] Urine Protein Urine Glucose (UA) Urine Ketones Urine Blood Urine Nitrite Urine Bilirubin Urine Urobilinogen Ur Leukocyte Esterase Urine Microscopic RBC Ur Squamous Epith Cells Adenovirus (PCR) Not detected B. pertussis DNA (PCR) Not detected B.parapertussis DNA PCR Not detected C. pneumoniae DNA (PCR) Not detected Coronavirus OC43 (PCR) Not detected Coronavirus HKU1 (PCR) Not detected Coronavirus 229E (PCR) Not detected Coronavirus NL63 (PCR) Not detected Human Metapneumovir PCR Not detected Influenza Type A (PCR) Not detected Influenza B (RT-PCR) Not detected M. pneumoniae (PCR) Not detected Parainfluenza 1 (PCR) Not detected Parainfluenza 2 (PCR) Not detected Parainfluenza 3 (PCR) Not detected Parainfluenza 4 (PCR) Not detected RSV (PCR) Not detected Entero/Rhino (PCR) Not detected SARS-CoV-2 (PCR) Not detected 01/18/21 01/18/21 12:21 14:22 WBC RBC Hgb Hct MCV MCH MCHC RDW Coeff of Edwige Plt Count Immature Gran % (Auto) Neut % (Auto) Lymph % (Auto) [place] % (Auto) Eos % (Auto) Baso % (Auto) Neut # (Auto) Lymph # (Auto) [place] # (Auto) Eos # (Auto) Baso # (Auto) Immature Gran # (Auto) Puncture Site Rrad Base Excess 3.0 O2 Saturation 95.1 ABG pH 7.44 ABG pCO2 40.0 ABG pO2 73.0 L ABG HCO3 27.2 ABG Total CO2 28.4 H Alvaro Test + Hemoglobin 1.4 Oxyhemoglobin 93.3 L Carboxyhemoglobin 2.0 H Total Hemoglobin 11.7 O2 Delivery Device Ra FiO2 % 21.0 Sodium Potassium Chloride Carbon Dioxide Anion Gap BUN Creatinine Estimated GFR (MDRD) BUN/Creatinine Ratio Glucose Calcium Total Bilirubin AST ALT Alkaline Phosphatase Troponin I Total Protein Albumin Globulin Albumin/Globulin Ratio Amylase Lipase Urine Color Yellow Urine Clarity Clear Urine pH 7.0 Ur Specific [place] 1.015 Urine Protein Negative Urine Glucose (UA) Negative Urine Ketones Negative Urine Blood Trace-intact H Urine Nitrite Negative Urine Bilirubin Negative Urine Urobilinogen 1.0 H Ur Leukocyte Esterase Negative Urine Microscopic RBC 2-5 Ur Squamous Epith Cells Not present Adenovirus (PCR) B. pertussis DNA (PCR) B.parapertussis DNA PCR C. pneumoniae DNA (PCR) Coronavirus OC43 (PCR) Coronavirus HKU1 (PCR) Coronavirus 229E (PCR) Coronavirus NL63 (PCR) Human Metapneumovir PCR Influenza Type A (PCR) Influenza B (RT-PCR) M. pneumoniae (PCR) Parainfluenza 1 (PCR) Parainfluenza 2 (PCR) Parainfluenza 3 (PCR) Parainfluenza 4 (PCR) RSV (PCR) Entero/Rhino (PCR) SARS-CoV-2 (PCR) Orders Category Date Time Status ADMIT PATIENT INPATIENT .TO [facility] (MONITORED BED) ADMISSION 01/18/21 14:19 Active ABG DRAW REQUEST Stat CARDIO 01/18/21 12:20 Completed EKG-(ED ONLY) Stat CARDIO 01/18/21 11:33 Completed BLADDER SCAN [facility] CARE 01/18/21 11:33 Active TELEMETRY MONITORING TELE CARE 01/18/21 14:21 Active ED CATHETER INSERTION AND CARE .ONCE EMERGENCY 01/18/21 13:34 Active ABG COOX Stat LAB 01/18/21 12:21 Completed AMYLASE Stat LAB 01/18/21 11:50 Completed CBC W/ AUTO DIFF Stat LAB 01/18/21 11:50 Completed COMPREHENSIVE METABOLIC PANEL Stat LAB 01/18/21 11:50 Completed LIPASE Stat LAB 01/18/21 11:50 Completed RESPIRATORY PANEL 2.1 (PCR) Stat LAB 01/18/21 11:15 Completed TROPONIN I Stat LAB 01/18/21 11:50 Completed URINALYSIS WITH MICROSCOPIC Stat LAB 01/18/21 14:22 Completed Dextrose 5 %-0.45 % NaCl [Dextrose 5%-1/2Ns IV Solution MEDS 01/18/21 14:22 Active ] 1,000 ml IV 83 mls/hr Lidocaine (Uro-Jet) [Uro-Jet] MEDS 01/18/21 13:34 Discontinued 10 ml MUCOUSMEMB ONCE STA Lisinopril [Zestril] MEDS 01/19/21 09:00 Active 2.5 mg PO DAILY Metformin HCl [Glucophage] MEDS 01/18/21 17:00 Active 1,000 mg PO BIDWM Metoprolol Succinate [Toprol Xl] MEDS 01/19/21 09:00 Active 25 mg PO DAILY Nitroglycerin [Nitrostat] MEDS 01/18/21 14:23 Active 0.4 mg SL Q5MIN X 3 DOSES PRN Ondansetron HCl/Pf [Zofran 4 mg/2 ml] MEDS 01/18/21 11:33 Discontinued 4 mg IVP ONCE STA Pantoprazole Sodium [Protonix] MEDS 01/19/21 06:30 Active 40 mg PO QDAC Simvastatin [Zocor] MEDS 01/19/21 09:00 Active 40 mg PO DAILY Sodium Chloride 0.9% [Sodium Chloride] 500 ml MEDS 01/18/21 11:33 Discontinued IV BOLUS Sucralfate [Carafate] MEDS 01/18/21 21:00 Active 1 gm PO BEDTIME Sucralfate [Carafate] MEDS 01/18/21 17:00 Active 1 gm PO BIDAC Tamsulosin HCl [Flomax] MEDS 01/19/21 09:00 Discontinued 0.4 mg PO DAILY CHEST, 1V AP ONLY Stat RADS 01/18/21 11:[address] ABDOMEN/PELVIS WO CONTRAST Stat RADS 01/18/21 11:33 Completed Medications Generic Name Dose Route Start Last Admin Trade Name Freq PRN Reason Stop Dose Admin Acetaminophen 650 mg 01/18/21 14:48 Acetaminophen 325 Mg Tablet PO Q4H PRN Headache Aspirin 81 mg 01/19/21 08:30 Aspirin 81 Mg Tablet.Dr PO DAILYWM JUAN MANUEL Atropine Sulfate 0.5 mg 01/18/21 14:48 Atropine Sulfate Inj 1 Mg/10 Ml Disp.Syrin IVP ONCE PRN Symptomatic Bradycardia Hydroxyzine HCl 25 mg 01/18/21 14:48 Hydroxyzine Hcl 25 Mg/Ml Vial IM Q4H PRN Nausea/Vomiting/Restlessness Dextrose/Sodium Chloride 1,000 mls @ 83 mls/hr 01/18/21 14:22 01/18/21 17:16 Dextrose 5%-1/2ns Iv Solution IV 01/19/21 02:24 Not Given .Q12H3M STA Sodium Chloride 1,000 mls @ 83 mls/hr 01/18/21 16:30 01/18/21 17:32 Sodium Chloride IV 83 mls/hr .Q12H3M JUAN MANUEL Administration CEFTRIAXONE/D5W 1 GM PREMIX 1 gm in 50 mls @ 75 mls/hr 01/18/21 16:30 01/18/21 17:31 Rocephin 1 Gm/50 Ml D5w IV 01/21/21 16:29 75 mls/hr DAILY JUAN MANUEL Administration Lisinopril 2.5 mg 01/19/21 09:00 Lisinopril 5 Mg Tablet PO DAILY JUAN MANUEL Metformin HCl 1,000 mg 01/18/21 17:00 01/18/21 17:32 Metformin Hcl 500 Mg Tablet PO 1,000 mg BIDWM JUAN MANUEL Administration Metoprolol Succinate 25 mg 01/19/21 09:00 Metoprolol Succinate 25 Mg Tab.Er.24h PO DAILY [facility] Nitroglycerin 0.4 mg 01/18/21 14:23 Nitroglycerin 0.4 Mg Tab.Subl SL Q5MIN X 3 DOSES PRN Chest Pain Pantoprazole Sodium 40 mg 01/19/21 06:30 Pantoprazole Sodium 40 Mg Tablet. PO QDAC [facility] Simvastatin 40 mg 01/19/21 09:00 Simvastatin 40 Mg Tablet PO DAILY [facility] Sodium Chloride 1 syr 01/18/21 21:00 0.9% Sodium Chloride 10 Ml Disp.Syrin IVF Q8HR JUAN MANUEL Sucralfate 1 gm 01/18/21 17:00 01/18/21 17:32 Sucralfate 1 Gm Tablet PO 1 gm BIDAC JUAN MANUEL Administration Sucralfate 1 gm 01/18/21 21:00 Sucralfate 1 Gm Tablet PO BEDTIME JUAN MANUEL Tamsulosin HCl 0.4 mg 01/18/21 21:00 Tamsulosin Hcl 0.4 Mg Cap.Er.24h PO BID [facility] Discontinued Medications Generic Name Dose Route Start Last Admin Trade Name Yuni PRN Reason Stop Dose Admin Sodium Chloride 500 mls @ 500 mls/hr 01/18/21 11:33 01/18/21 11:51 Sodium Chloride IV 01/18/21 12:32 500 mls/hr BOLUS STA Administration Lidocaine HCl 10 ml 01/18/21 13:34 01/18/21 14:28 Lidocaine 10 Ml Jel.Pf.Naomi (Urojet) MUCOUSMEMB 01/18/21 13:35 10 ml ONCE STA Administration Ondansetron HCl 4 mg 01/18/21 11:33 01/18/21 11:54 Ondansetron Hcl/Pf 4 Mg/2 Ml Sdv IVP 01/18/21 11:34 Not Given ONCE STA Tamsulosin HCl 0.4 mg 01/19/21 09:00 Tamsulosin Hcl 0.4 Mg Cap.Er.24h PO DAILY JUAN MANUEL Vital Signs: Temp Pulse Resp BP Pulse Ox 01/18/21 10:51 96.3 F L 67 20 126/62 96 Discharge Plan Discharge Patient Disposition: ADMITTED INPATIENT Discharge Problem: Acute hyponatremia, Urine retention ED Provider: SHAWNEE EWING Condition: Good Physician Progress Note: []Patient has severe BPH, bladder outlet obstruction, relieved with Nelson, admitted by Dr. Rodriguez. Further tx and eval for low sodium.
[2021-01-18] MEDS ORDERED: SODIUM CHLORIDE 500 ML IV STA (11:33)
[2021-01-18] MEDS: ZOFRAN 4 MG/2 ML IVP STA ×2 (11:51→11:54)
[2021-01-18 11:55] LABS: BASOPHILS % (AUTO) 0.5 % (0.0-3.0); EOSINOPHILS # (AUTO) 0.1 K/ul (0.0-0.7); EOSINOPHILS % (AUTO) 0.9 % (0.0-7.0); HEMATOCRIT 33.5 % (42.0-52.0); HEMOGLOBIN 11.7 g/dl (14.0-18.0); IMMATURE GRANULOCYTE % (AUTO) 0.3 % (0.0-5.0); LYMPHOCYTES # (AUTO) 2.3 K/uL (0.60-3.4); LYMPHOCYTES % (AUTO) 34.1 (10.0-50.0); MEAN CORPUSCULAR HEMOGLOBIN 29.2 pg (27.0-31.0); MEAN CORPUSCULAR HGB CONC 34.9 (31.8-35.4); MEAN CORPUSCULAR VOLUME 83.5 fl (80.0-94.0); MONOCYTES # (AUTO) 0.6 K/uL (0.4-2.0); MONOCYTES % (AUTO) 9.6 (0-10); NEUTROPHILS # (AUTO) 3.6 K/ul (2.0-6.9); NEUTROPHILS % (AUTO) 54.6 % (42.2-75.2); PLATELET COUNT 123 10^3/uL (140-440); RDW COEFFICIENT OF VARIATION 12.2 % (11.6-14.8); RED BLOOD COUNT 4.01 10^6/ul (4.70-6.10); WHITE BLOOD COUNT 6.59 K/ul (4.2-10.2)
[2021-01-18 12:07] LABS: ALBUMIN 3.67 g/dL (3.5-5.0); AMYLASE 61.7 U/L (30-110); ASPARTATE AMINO TRANSFERASE 31.7 U/L (17-59); BILIRUBIN,TOTAL 0.51 mg/dL (0.2-1.3); BLOOD UREA NITROGEN 13.3 mg/dL (9-20); CALCIUM 9.98 mg/dL (8.4-10.2); CARBON DIOXIDE 27.8 mmol/L (22-30.0); CHLORIDE 94.6 mmol/L (98-107); CREATININE 0.81 mg/dL (0.60-1.10); GLUCOSE 152.2 mg/dL (74-106); LIPASE 78.6 U/L (23-300); POTASSIUM 3.83 mmol/L (3.5-5.1); SODIUM 129.2 mmol/L (134.5-145); TOTAL PROTEIN 6.45 g/dL (6.3-8.2)
[2021-01-18 12:19] LABS: TROPONIN I < 0.012 ng/ml (0.0000-0.120)
[2021-01-18 12:38] LABS: ABG PH 7.44 (7.35-7.45)
--- NOTE | 2021-01-18 12:56 | DI ---
EXAM: Chest one view HISTORY: Dyspnea COMPARISON: 06/11/2018 TECHNIQUE: Single view of the chest was performed FINDINGS: Chronic blunting left costophrenic angle likely pleural parenchymal scarring was stable pe ripheral scarring in the left lung. No airspace consolidation. No visible pneumothorax. Heart is e nlarged. Mediastinal contour unchanged, noting atherosclerosis. Median sternotomy wires. Left shou lder arthroplasty. IMPRESSION: Cardiomegaly. Left-sided scarring. No acute cardiopulmonary process.
--- NOTE | 2021-01-18 13:01 | CT ---
EXAM: CT abdomen pelvis without contrast HISTORY: Vomiting COMPARISON: None TECHNIQUE: Serial axial images of the abdomen pelvis were performed from the lung bases through the inferior pelvis without contrast. These were viewed in multiple planes. FINDINGS: Lung bases demonstrate bilateral lower lobe atelectasis. There is a moderate hiatal herni a. Evaluation is limited due to lack of contrast. The liver is unremarkable. The gallbladder has been resected. The adrenal glands are unremarkable. The kidneys are unremarkable. The spleen is unremar kable. Pancreas is unremarkable. The stomach is nondistended. Small bowel in the abdomen pelvis is unremarkable. The colon is unremarkable. There is severe calci fic atherosclerotic disease. Urinary bladder is distended. The prostate is enlarged. The osseous s tructures demonstrate multilevel degenerative disease throughout the spine and hips. IMPRESSION: 1. No acute intra-abdominal or pelvic process to account for patient's symptoms. There is a moderat e hiatal hernia. 2. Bilateral lower lobe atelectasis is present. 3. Enlarged prostate. All CT scans are performed using dose optimization techniques as appropriate to the performed exam an d include at least one of the following: Automated exposure control, adjustment of the mA and/or kV according t o size, and the use of iterative reconstruction technique.
[2021-01-18] MEDS ORDERED: URO-JET MUCOUSMEMB STA (13:34)
[2021-01-18] MEDS ORDERED: DEXTROSE 5%-1/2NS IV SOLUTION 1,000 ML IV STA (14:22)
[2021-01-18] MEDS ORDERED: NITROSTAT SL PRN (14:23)
[2021-01-18 14:29] LABS: BILIRUBIN,URINE Negative (NEGATIVE); CLARITY,URINE Clear (CLEAR); COLOR,URINE Yellow (YELLOW); GLUCOSE, URINE (UA) Negative (NEGATIVE); KETONES,URINE Negative (NEGATIVE); LEUKOCYTE ESTERASE ,URINE Negative (NEGATIVE); NITRITE,URINE Negative (NEGATIVE); PROTEIN,URINE Negative (NEGATIVE); URINE, BLOOD Trace-intact (NEGATIVE)
[2021-01-18 14:33] LABS: SQUAMOUS EPITHELIAL CELL,UR NOT PRESENT (0-5)
[2021-01-18] MEDS ORDERED: TYLENOL PO PRN (14:48)
[2021-01-18] MEDS ORDERED: VISTARIL INJ IM PRN (14:48)
[2021-01-18] MEDS ORDERED: ATROPINE SULFATE PFS IVP PRN (14:48)
[2021-01-18 15:38] VITALS: BMI 22.3
[2021-01-18 15:41] LABS: CREATINE KINASE 41.3 U/L (55-170)
[2021-01-18 15:54] LABS: TROPONIN I < 0.012 ng/ml (0.0000-0.120)
[2021-01-18] MEDS: ROCEPHIN 1 GM/50 ML D5W 1 GM/50 ML BAG IV SCH (17:31)
[2021-01-18] MEDS: CARAFATE PO SCH ×2 (17:32→20:21)
[2021-01-18] MEDS: SODIUM CHLORIDE 1,000 ML IV SCH (17:32)
[2021-01-18] MEDS: GLUCOPHAGE PO SCH (17:32)
[2021-01-18 18:44] LABS: BILIRUBIN,URINE Negative (NEGATIVE); CLARITY,URINE Clear (CLEAR); COLOR,URINE Yellow (YELLOW); GLUCOSE, URINE (UA) Negative (NEGATIVE); KETONES,URINE Negative (NEGATIVE); LEUKOCYTE ESTERASE ,URINE Negative (NEGATIVE); NITRITE,URINE Negative (NEGATIVE); PROTEIN,URINE Negative (NEGATIVE); URINE, BLOOD 3+ (NEGATIVE); UROBILINOGEN,URINE 0.2 (0.2)
[2021-01-18 18:46] LABS: SQUAMOUS EPITHELIAL CELL,UR NOT PRESENT (0-5)
[2021-01-18] MEDS: FLOMAX PO SCH (20:21)
[2021-01-18 23:14] LABS: CREATINE KINASE 69.2 U/L (55-170)
[2021-01-18 23:27] LABS: TROPONIN I < 0.012 ng/ml (0.0000-0.120)
[2021-01-19 05:03] LABS: BASOPHILS % (AUTO) 0.5 % (0.0-3.0); EOSINOPHILS # (AUTO) 0.2 K/ul (0.0-0.7); EOSINOPHILS % (AUTO) 2.5 % (0.0-7.0); HEMATOCRIT 32.4 % (42.0-52.0); HEMOGLOBIN 11.3 g/dl (14.0-18.0); IMMATURE GRANULOCYTE % (AUTO) 0.2 % (0.0-5.0); LYMPHOCYTES # (AUTO) 1.7 K/uL (0.60-3.4); LYMPHOCYTES % (AUTO) 25.3 (10.0-50.0); MEAN CORPUSCULAR HEMOGLOBIN 29.4 pg (27.0-31.0); MEAN CORPUSCULAR HGB CONC 34.9 (31.8-35.4); MEAN CORPUSCULAR VOLUME 84.4 fl (80.0-94.0); MONOCYTES # (AUTO) 0.7 K/uL (0.4-2.0); NEUTROPHILS % (AUTO) 61.5 % (42.2-75.2); PLATELET COUNT 107 10^3/uL (140-440); RDW COEFFICIENT OF VARIATION 12.4 % (11.6-14.8); RED BLOOD COUNT 3.84 10^6/ul (4.70-6.10); WHITE BLOOD COUNT 6.53 K/ul (4.2-10.2)
[2021-01-19 05:15] LABS: ALANINE AMINOTRANSFERASE 10.8 U/L (0-50); ALBUMIN 3.41 g/dL (3.5-5.0); ALKALINE PHOSPHATASE 86.1 U/L (56-119); ASPARTATE AMINO TRANSFERASE 27.3 U/L (17-59); BILIRUBIN,TOTAL 0.55 mg/dL (0.2-1.3); BLOOD UREA NITROGEN 9.2 mg/dL (9-20); CALCIUM 9.69 mg/dL (8.4-10.2); CARBON DIOXIDE 27.3 mmol/L (22-30.0); CHLORIDE 101.2 mmol/L (98-107); CREATININE 0.66 mg/dL (0.60-1.10); GLUCOSE 133.9 mg/dL (74-106); POTASSIUM 3.97 mmol/L (3.5-5.1); TOTAL PROTEIN 6.2 g/dL (6.3-8.2)
[2021-01-19] MEDS: SODIUM CHLORIDE 1,000 ML IV SCH ×2 (05:21→18:10)
[2021-01-19] MEDS: PROTONIX PO SCH (05:53)
[2021-01-19] MEDS: CARAFATE PO SCH ×3 (05:53→20:24)
[2021-01-19] MEDS: ZESTRIL PO SCH (08:21)
[2021-01-19] MEDS: ASPIRIN EC PO SCH (08:22)
[2021-01-19] MEDS: TOPROL XL PO SCH (08:22)
[2021-01-19] MEDS: ZOCOR PO SCH (08:22)
[2021-01-19] MEDS: GLUCOPHAGE PO SCH ×2 (08:22→17:03)
[2021-01-19] MEDS: FLOMAX PO SCH ×2 (08:22→20:23)
[2021-01-19] MEDS: ROCEPHIN 1 GM/50 ML D5W 1 GM/50 ML BAG IV SCH (08:25)
[2021-01-19] MEDS ORDERED: FLOMAX PO SCH (09:00)
[2021-01-19] MEDS ORDERED: TOPROL XL PO SCH (09:00)
[2021-01-19] MEDS ORDERED: NON-FORMULARY MEDICATION (Esomeprazole Magnesium [Nexium] 40 MG capsule,delayed release(DR PO SCH (09:00)
[2021-01-19] MEDS ORDERED: DEXTROSE 5%-1/2NS IV SOLUTION 1,000 ML IV SCH (11:00)
--- NOTE | 2021-01-19 11:25 | RS.PTINEVL ---
Subjective - Patient information Date of Evaluation: 01/19/21 Date of Arrival on Unit: 01/18/21 Admitted From:: Home Diagnosis: hyponatremia, urinary retention, gait difficulty, balance impairment Usual Living Arrangement: Susanne Spears Home Environment: Apartment, Level/No stairs Medical History: Hypertension, CHF, Arthritis Medical History Comments:: CAD, DDD, hearing loss, hyperlipidemia LATEX ALLERGY?: No Surgical History: Shoulder Replacement (left), Cholecystectomy, CABG Surgical History Comments:: vascular surgery Medications: see chart Subjective Information/ Patient Comments:: pt states that he is feeling better than yesterday. He states he could not walk yesterday. pt states he does not have help at [employer]. - Level of function Prior to this admission, the patient could do the following:: Independent Selfcare, Independent ADL's, Independent Ambulation Abilities prior to this admission: pt used w/c for mobility due to fear of falling. pt states he is afraid his legs will "give out" on him. He states he doesn't have anyone to walk with him for safety. Current Level of Function: Partially Dependent Current Equipment Used at Home: Shower chair; W/C; Wheeled walker; Cane; B/P Machine; Accucheck Machine; Life Alert Interventions - Objective Patient Orientation: Person, Place, Situation Current Interventions: IV's, Telemetry, Nelson Catheter Range of Motion - ROM Right Upper Extremity AROM: Slight limitation (decreased shld ROM) Left Upper Extremity AROM: Slight limitation (decreased shld ROM) Right Lower Extremity AROM: WFL's Left Lower Extremity AROM: WFL's Muscle Strength - Muscle Strength Right Upper Extremity Strength: Mild Weakness (shld flex 3/5, elbow flex/ext 4/5) Left Upper Extremity Strength: Mild Weakness (shld flex 3/5, elbow flex/ext 4/5) Right Lower Extremity Strength: Mild Weakness (hip flex 3+/5, knee flex/ext 4- /5, ankle DF/PF 4-/5) Left Lower Extremity Strength: Mild Weakness (hip flex 3+/5, knee flex/ext 4-/5, ankle DF/PF 4-/5) Sensation - Sensation Right Upper Extremity Sensation: Intact/Normal Left Upper Extremity Sensation: Intact/Normal Right Lower Extremity Sensation: Intact/Normal Left Lower Extremity Sensation: Intact/Normal Palpation Palpation Findings: None/Normal Balance - Sitting Balance and Reactions Static Sitting Balance: Fair Dynamic Sitting Balance: Poor Sitting Equilibrium Reactions: Delayed Left, Delayed Right Sitting Protective Reactions: Delayed Left, Delayed Right - Standing Balance and Reactions Static Standing Balance: Poor Dynamic Standing Balance: Poor Functional Mobility - Bed Mobility Comments:: pt seen sitting up in chair. pt states he always sleeps in recliner - Transfers Sit to Stand: Min Assist, 1 person assist, 2 person assist Stand to Sit: Min Assist - Safety Awareness Safety Awareness: Poor DAI INDEX SCORE: n/a Ambulation - Ambulation Assistive Device Used: Rolling Walker Orthotic/Prosthetic Device: No Distance: 140ft Assistance needed with Ambulation: Min Assist, 1 person assist, 2 person assist Quality of Ambulation: pt amb with min x 1 +1 for IV Gait Deviations: Forward posture, Short stride, Deviates from path Ambulation Comments: pt requires assist with walker placement at times. Factors Affecting Ambulation: Decreased Balance, Weakness, Decreased Coordination, Decreased Safety, Limited Endurance Treatment time - Time with patient Length of Evaluation: 19 Total treatment time: 24 Patient Education - Education Patient Education: Activity Modification, Education of Plan of Care Teaching Recipient: Patient Teaching Methods: Discussion Comments: discussion regarding POC and safety with gait and transfers Assessment - Assessment Problem List:: Decreased level of function, Requires training/education, Decreased safety/Risk of falls, Weakness Rehab Potential: Fair Further Therapy Indicated?: Yes Candidate for Swing Bed for Therapy Services?: Feel pt may not be a candidate for swing bed due to higher level of function and pt uses w/c at assisted living. Evaluation Complexity: HISTORY: Medium (CHF, OA, HTN, age, CAD), EXAM OF BODY SYSTEMS: Medium (balance, strength, posture, gait training), CLINICAL PRESENTATION: Medium, CLINICAL DECISION MAKING: Medium Patient's Goal(s): get stronger Short Term Goals GOAL #1: Transfer sit to/from stand with CGA Goal to be met by: 01/21/21 GOAL #2: pt amb 150ft with rwx CGA with improved posture Goal to be met by: 01/21/21 GOAL #3: Improve dyn stand balance fair Goal to be met by: 01/21/21 GOAL #4: pt with improved BLE strength 4 to 4+/5 Goal to be met by: 01/21/21 Snf Goals GOAL #1: pt transfer sit to/from stand independently Goal to be met by: 01/25/21 GOAL #2: pt amb with AAD functional household distances with SBA with no LOB Goal to be met by: 01/25/21 GOAL #3: pt able to maintain standing balance to perform daily hygeine activity. Goal to be met by: 01/25/21 Plan Plan of Care: Therapeutic EX, Neuromuscular Re-Educ, Therapeutic Activity Other:: gait training Frequency of Treatment: 1-2 X day, as tolerated Duration of Treatment: 5 days Anticipated Discharge Destination: Assisted Living Facility Treatment Diagnosis (ICD 10 Codes): balance impaired R26.81. difficulty walking R 26.2. weakness M62.81 Has the Physician been added for Co-signature?: Yes
--- NOTE | 2021-01-19 11:25 | RS.OTINEVL ---
Subjective - Patient information Date of Evaluation: 01/19/21 Date of Arrival on Unit: 01/18/21 Admitted From:: Home Diagnosis: Urinary retention, vomiting PRECAUTIONS: Fall risk Usual Living Arrangement: [facility] Living Arrangement Comments: [facility] Home Environment: Apartment, Level/No stairs Medical History: Hypertension, CHF, Arthritis Medical History Comments:: CAD, DDD, hearing loss, hyperlipidemia LATEX ALLERGY?: No Surgical History: Shoulder Replacement (left), Cholecystectomy, CABG Surgical History Comments:: vascular surgery, Left shoulder surgery Medications: see chart Subjective Information/ Patient Comments:: "You have to do everything yourself at [facility] and the food is terrible." - Level of function Prior to this admission, the patient could do the following:: Independent Selfcare, Independent ADL's, Independent Ambulation Abilities prior to this admission: Pt uses a RW and a WC at [facility]. Meals are brought to them due to COVID. Pt is weak and reports he has a difficult doing his ADLs. Current Level of Function: Partially Dependent Current Equipment Used at Home: Shower chair; W/C; Wheeled walker; Cane; B/P Machine; Accucheck Machine; Life Alert Pain Assessment - Pain Pain Score: 0 Interventions - Objective Patient Orientation: Person, Place, Situation Current Interventions: IV's, Oxygen, Telemetry Observation: Pt has limited LUE shoulder AROM. Pt has weakness of BUE and functional mobility is not steady. Pt requires Moderate assist to stand from chair. Pt is minimal assist for functional transfers. Interventions - ROM Right Upper Extremity AROM: WFL's Left Upper Extremity AROM: Slight limitation - Strength Right Upper Extremity Strength: Mild Weakness Left Upper Extremity Strength: Mild Weakness - Sensation Right Upper Extremity Sensation: Intact/Normal Left Upper Extremity Sensation: Intact/Normal Balance - Sitting Balance Static Sitting Balance: Fair Dynamic Sitting Balance: Fair - Standing Balance Static Standing Balance: Poor Dynamic Standing Balance: Poor ADL Skills - Grooming Grooming: Min Assist - Bathing Bathing UE: Not Tested Bathing LE: Not Tested - Dressing Dressing UE: Not Tested Dressing LE: Not Tested - Toilet Management Toileting Management: Min Assist Functional Mobility - Transfers Sit to Stand: Mod Assist Stand to Sit: Mod Assist Stand Pivot Transfers: Mod Assist Comments:: Pt was moderate assistance to stand from the low chair. - Ambulation Weight Bearing Status: FWB - Safety Awareness Safety Awareness: Fair DAI INDEX SCORE: . Additional Treatment Performed - Time with patient Length of Evaluation: 18 Total treatment time: 22 Activities Do you enjoy playing games?: Yes Would you be interested in leaving your room for activities?: Yes Would you enjoy group activities?: Yes Do you have difficulty with your vision?: Yes Patient Interests:: Reading Books/Magazines, Watching Television, Visiting/Socializing Patient Education Patient Education: Education of diagnosis, Home Exercise Program, Education of Plan of Care Teaching Recipient: Patient Teaching Methods: Discussion, Demonstration Assessment Problem List:: Decreased level of function, Decreased safety/Risk of falls, Weakness Rehab Potential: Good Further Therapy Indicated?: Yes Evaluation Complexity: HISTORY: Medium, EXAM OF BODY SYSTEMS: Medium, CLINICAL DECISION MAKING: Medium Patient's Goal(s): To get stronger so that he can take care of himself at the [facility]. Short Term Goals - Goals GOAL 1: Pt to increase BUE strength is 4/5. Goal to be met by: 01/22/21 GOAL 2: Pt to increase activity tolerance to 15 minutes. Goal to be met by: 01/22/21 GOAL 3: Pt to increase dyn. std. balance to Fair+. Goal to be met by: 01/22/21 GOAL 4: Pt to increase toilet transfers to Minimal assistance. Goal to be met by: 01/22/21 [employer] Reading Teacher Goals GOAL 1: Pt to increase strength in order to be SUP for self cares at home. Goal to be met by: 02/21/21 GOAL 2: Pt to increase standing balance to G-/F+ to increase safety of toilet t/f. Goal to be met by: 02/21/21 GOAL 3: Pt to tolerate 10 minutes of activity in standing to increase safety of ADL Goal to be met by: 02/21/21 Plan Plan of Care: Therapeutic EX, Therapeutic Activity, Self-Care/Home Management Frequency of Treatment: 1-2 X day, as tolerated Duration of Treatment: 1 Week Anticipated Discharge Destination: Assisted Living Facility Treatment Diagnosis (ICD 10 Codes): Muscle weakness M62.81, Z74.1 Need for assistance with personal care. Has the Physician been added for Co-signature?: Yes
[2021-01-19 21:18] VITALS: TEMP 97.6
[2021-01-20 05:06] LABS: BASOPHILS % (AUTO) 0.4 % (0.0-3.0); EOSINOPHILS # (AUTO) 0.3 K/ul (0.0-0.7); EOSINOPHILS % (AUTO) 4.8 % (0.0-7.0); HEMATOCRIT 30.2 % (42.0-52.0); HEMOGLOBIN 10.6 g/dl (14.0-18.0); IMMATURE GRANULOCYTE % (AUTO) 0.2 % (0.0-5.0); LYMPHOCYTES # (AUTO) 1.9 K/uL (0.60-3.4); LYMPHOCYTES % (AUTO) 36.9 (10.0-50.0); MEAN CORPUSCULAR HEMOGLOBIN 29.9 pg (27.0-31.0); MEAN CORPUSCULAR HGB CONC 35.1 (31.8-35.4); MEAN CORPUSCULAR VOLUME 85.1 fl (80.0-94.0); MONOCYTES # (AUTO) 0.5 K/uL (0.4-2.0); MONOCYTES % (AUTO) 8.9 (0-10); NEUTROPHILS # (AUTO) 2.6 K/ul (2.0-6.9); NEUTROPHILS % (AUTO) 48.8 % (42.2-75.2); PLATELET COUNT 105 10^3/uL (140-440); RDW COEFFICIENT OF VARIATION 12.4 % (11.6-14.8); RED BLOOD COUNT 3.55 10^6/ul (4.70-6.10); WHITE BLOOD COUNT 5.26 K/ul (4.2-10.2)
[2021-01-20 05:19] LABS: ALANINE AMINOTRANSFERASE 11.4 U/L (0-50); ALBUMIN 3.16 g/dL (3.5-5.0); ALKALINE PHOSPHATASE 87.4 U/L (56-119); ASPARTATE AMINO TRANSFERASE 28.5 U/L (17-59); BILIRUBIN,TOTAL 0.5 mg/dL (0.2-1.3); BLOOD UREA NITROGEN 9.5 mg/dL (9-20); CALCIUM 9.79 mg/dL (8.4-10.2); CARBON DIOXIDE 24.7 mmol/L (22-30.0); CHLORIDE 104.5 mmol/L (98-107); CREATININE 0.66 mg/dL (0.60-1.10); GLUCOSE 128.1 mg/dL (74-106); POTASSIUM 3.99 mmol/L (3.5-5.1); SODIUM 134.5 mmol/L (134.5-145); TOTAL PROTEIN 5.93 g/dL (6.3-8.2)
[2021-01-20 05:37] VITALS: BP 123/75
[2021-01-20] MEDS: CARAFATE PO SCH (05:39)
[2021-01-20] MEDS: PROTONIX PO SCH (05:39)
[2021-01-20] MEDS: SODIUM CHLORIDE 1,000 ML IV SCH (05:40)
[2021-01-20] MEDS: ROCEPHIN 1 GM/50 ML D5W 1 GM/50 ML BAG IV SCH (08:44)
[2021-01-20] MEDS: TOPROL XL PO SCH (08:46)
[2021-01-20] MEDS: FLOMAX PO SCH (08:46)
[2021-01-20] MEDS: ZOCOR PO SCH (08:46)
[2021-01-20] MEDS: ZESTRIL PO SCH (08:47)
[2021-01-20] MEDS: GLUCOPHAGE PO SCH (08:47)
[2021-01-20] MEDS: ASPIRIN EC PO SCH (08:47)
--- NOTE | 2021-01-20 08:50 | HP ---
DATE OF SERVICE: 01/18/2021 REASON FOR HOSPITALIZATION/HISTORY OF PRESENT ILLNESS: 89 year old white male who had a scheduled appointment in our office today. His daughter called stating that he had been up all night with diarrhea and was extremely weak with low grade fever. He lives at [facility]. He was brought to the emergency room for further evaluation. PAST MEDICAL HISTORY: Diabetes Mellitus type 2, last A1c was 6.0 History of left lower lobe pneumonia Cardiac cath, [address] Arreaga Coronary artery disease Anxiety Hypertension LVH Neuropathy COPD BPH PVCs Degenerative disc disease of the spine Dyslipidemia GERD Anemia B12 deficiency Bilateral hearing loss Chronic constipation In August 2019 he had a cardiac workup at [facility] which was negative for chest pain. History of hyponatremia PAST SURGICAL HISTORY: He had CABG in 2003 Last colonoscopy in [address] Sutton REVIEW OF SYSTEMS: CONSTITUTIONAL: No night sweats. No fatigue, malaise, lethargy. No fever or chills. Weakness. Pallor. HEENT: Eyes: No visual changes. No eye pain. No eye discharge. ENT: No runny nose. No epistaxis. No sinus pain. No sore throat. No odynophagia. No ear pain. No congestion. RESPIRATORY: No cough, no congestion. No hemoptysis. No shortness of breath. CARDIOVASCULAR: No angina symptoms. No CHF symptoms. No atypical chest pain for CAD. No palpitations. No PND. No orthopnea. GASTROINTESTINAL: No abdominal pain. No nausea or vomiting. Diarrhea. No hematemesis. No hematochezia. GENITOURINARY: No urgency. No frequency. No dysuria. No hematuria. No obstructive symptoms. No discharge. No pain. No significant abnormal bleeding. MUSCULOSKELETAL: No musculoskeletal pain. No joint swelling. No arthritis. NEUROLOGICAL: No headache. No neck pain. No syncope. No seizures. No dizziness. PSYCHIATRIC: Not anxious. No depression. No suicidal thoughts. No homicidal thoughts. SKIN: No rash. No lesions. No wounds. ENDOCRINE: No unexplained weight loss. No weight gain. HEMATOLOGIC/LYMPHATIC: No anemia. No purpura. No petechiae. No prolonged or excessive bleeding. No palpable lymph nodes. PERSONAL/FAMILY/SOCIAL HISTORY: He is a resident of [facility]. He is non-smoker. He is a and no longer drives. No alcohol or illicit drug use. MEDICATIONS: Metformin 1000mg PO BID Metoprolol Succinate 25mg PO daily Zocor 40mg PO daily Sucralfate 1 gram PO BID Zestril 2.5mg PO daily Nexium 40mg PO daily Nitroglycerin 0.4mg sublingual Sucralfate 1gram PO bedtime Tamsulosin 0.4mg Po daily ALLERGIES: No known allergies PHYSICAL EXAMINATION: GENERAL: The patient is alert and oriented to person. HEENT: Head normocephalic, atraumatic. Eyes: Extraocular muscles are intact. Pupils are equal, round and reactive to light and accommodation. Ears: No lesions. Nose appeared normal. Throat: No exudate or erythema. NECK: Supple. No JVD, no carotid bruit. No lymphadenopathy or thyromegaly. LUNGS: Diminished breath sounds. Clear to auscultation. Percussion note normal. Chest symmetrical. HEART: S1, S2, no S3. No murmur. No cyanosis or clubbing. No ascites. Pulses: Dorsalis pedis and posterior tibial pulses +1 to +2 bilaterally. ABDOMEN: Soft. Nontender. Bowel sounds active. No CVA tenderness. No mass felt. EXTREMITIES: No edema. Full range of motion of all extremities, equal. NEUROLOGIC: No focal deficit. Cranial nerves II through XII are grossly intact. No headache, no double vision or headache. SKIN: Not dry. Intact. Turgor - normal. LYMPHATIC: No palpable lymph nodes/no lymphedema. MUSCULOSKELETAL: Normal joints with no swelling. Muscle tone is normal. LABS: Chest x-ray shows cardiomegaly. No acute process. WBC 6.5, hgb 11.7, hct 33.5, plt count 123. Sodium 129, potassium 3.8, BUN 13, creatinine 0.81, glucose 152, ABG on room air. pH 7.44, pCO2 40, pO2 73, O2 saturation 95, bicarb 27.2. Respiratory panel was negative for COVID. Urine shows trace blood. Negative leukocytes. CT of the abdomen shows no acute intraabdominal process, hiatal hernia, bilateral atelectasis, enlarged prostate. ASSESSMENT: 1. Acute gastroenteritis 2. Generalized weakness 3. Urinary retention 4. Diabetes mellitus type 2 5. Hypertension 6. Coronary artery disease 7. LVH PLAN: 1. We will admit 2. Routine telemetry orders 3. CBC and CMP daily 4. Continue Home medications 5. Start IV fluids normal saline at 75cc an hour IV 6. Nelson Catheter was inserted in the ER due to 600cc of urine retained 7. We will start on Flomax 8. Stool will be GI panel 9. BRAT diet 10.Oxygen as needed Will follow closely. TIME SPENT: More than 70 minutes. MTDD
--- NOTE | 2021-01-20 09:08 | PCM.PROG ---
Attending Provider: ATTENDING PROVIDER: Dr. JAYSON ROYAL This patient is seen with Afia Luis, Nurse Practitioner. DATE OF SERVICE: 01/20/21 SUBJECTIVE: This 89 year old /WHITE M was hospitalized 01/18/21. The patient is resting comfortably. He has voided well after having Nelson discontinued. No nausea or vomiting today. Will give third dose of Rocephin. He is eating well. REVIEW OF SYSTEMS: CONSTITUTIONAL: Weakness. No night sweats. No fatigue, malaise, lethargy. No fever or chills. HEENT: Eyes: No visual changes. No eye pain. No eye discharge. ENT: No runny nose. No epistaxis. No sinus pain. No odynophagia. No congestion. RESPIRATORY: No cough, no congestion. No hemoptysis. No shortness of breath. CARDIOVASCULAR: No angina symptoms. No CHF symptoms. No atypical chest pain for CAD. No palpitations. No orthopnea.. GASTROINTESTINAL: No abdominal pain. No nausea or vomiting. No diarrhea or constipation. No hematemesis. No hematochezia. GENITOURINARY: No urgency. No frequency. No dysuria. No hematuria. No obstructive symptoms. No discharge. No pain. No significant abnormal bleeding. MUSCULOSKELETAL: No musculoskeletal pain; no joint swelling. NEUROLOGICAL: Awake, alert, oriented to time, place and person. No headache. No neck pain. No syncope. No seizures. No dizziness. PSYCHIATRIC: Not anxious. No depression. No suicidal thoughts. No homicidal thoughts. SKIN: No rash. No lesions. No wounds. ENDOCRINE: No unexplained weight loss. No weight gain. HEMATOLOGIC/LYMPHATIC: No anemia. No purpura. No petechiae. No prolonged or excessive bleeding. No palpable lymph nodes. PHYSICAL EXAMINATION: GENERAL: The patient is awake, alert and oriented, sitting in bed in no distress. The patient is hard of hearing. VITAL SIGNS: Temperature 97.6 F, Pulse 68, Respiratory Rate 16, BP 123/75, Pulse Ox 95% HEENT: Head normocephalic, atraumatic. Eyes: Extraocular muscles are intact. Pupils are equal, round and reactive to light and accommodation. Ears: Hard of hearing. No lesions. Nose appeared normal. Throat: No exudate or erythema. NECK: Supple. No JVD, no carotid bruit. No lymphadenopathy or thyromegaly. LUNGS: Diminished breath sounds. Clear to auscultation. Percussion note normal. Chest symmetrical. HEART: S1, S2, no S3. No murmurs. No cyanosis or clubbing. No ascites. Pulses: Dorsalis pedis and posterior tibial pulses +1 to +2 both sides. ABDOMEN: Soft. Non-tender. Bowel sounds active. No CVA tenderness. No mass felt. EXTREMITIES: No edema. Full range of motion of all extremities, equal. NEUROLOGIC: No focal deficit. Cranial nerves II through XII are grossly intact. No headache, no double vision. SKIN: Not dry. Intact. Turgor-normal. LYMPHATIC: No palpable lymph nodes/no lymphedema. MUSCULOSKELETAL: Normal joints with no swelling. Muscle tone is normal. LAB REVIEW: 01/20/21 04:50 01/20/21 04:50 01/20/21 04:50: Sodium 134.5, Potassium 3.99, Chloride 104.5, Carbon Dioxide 24.7, Anion Gap 9.29, BUN 9.5, Creatinine 0.66, Estimated GFR (MDRD) 114.00, BUN/Creatinine Ratio 14.39, Glucose 128.1 H, Calcium 9.79, Total Bilirubin 0.50, AST 28.5, ALT 11.4, Alkaline Phosphatase 87.4, Total Protein 5.93 L, Albumin 3.16 L, Globulin 2.77, Albumin/Globulin Ratio 1.14 01/20/21 04:50: WBC 5.26, RBC 3.55 L, Hgb 10.6 L, Hct 30.2 L, MCV 85.1, MCH 29.9, MCHC 35.1, RDW Coeff of Edwige 12.4, Plt Count 105 L, Immature Gran % (Auto) 0.2, Neut % (Auto) 48.8, Lymph % (Auto) 36.9, [place] % (Auto) 8.9, Eos % (Auto) 4.8, Baso % (Auto) 0.4, Neut # (Auto) 2.6, Lymph # (Auto) 1.9, [place] # (Auto) 0.5, Eos # (Auto) 0.3, Baso # (Auto) 0.0, Immature Gran # (Auto) 0.0 ASSESSMENT: Please see below. 1. BPH. 2. Urinary retention, resolved. 3. Dehydration - resolved. 4. Generalized weakness. 5. Hard of hearing. PLAN: 1. Discharge today. 2. Will give third dose of Rocephin today. 3. Continue with Flomax increase twice a day. 4. Home Health referral for PT/OT at [facility]. 5. D/C fluids. Plan and coordination of the patient's care discussed in the presence of Signal Intelligence Analyst and nurse. CONDITION: Stable SCRIBED BY: Rafy MCCLAIN scribed while in presence of service performed by Dr. Royal/Afia Luis APRN on 01/20/21 ([id number])
--- NOTE | 2021-01-20 10:28 | CM.DICTOOL ---
ADMISSION: 01/18/21 14:42 DISCHARGE: WEDNESDAY, JANUARY 20, 2021 DATE OF SERVICE: 01/20/21 FINAL DIAGNOSIS BPH URINARY RETENTION- RESOLVED DEHYDRATION - RESOLVED GENERALIZED WEAKNESS HARD OF HEARING DIFFICULTY WALKING BALANCE IMPAIRED HX: CHF CVA GOUT HYPERLIPIDEMIA HYPERTENSION HYPONATREMIA DEHYDRATION PNEUMONIA, LEFT LUNG PER CT FEVER EXTERNAL OTITIS DIABETES MELLITUS, TYPE 2 GERD ANEMIA OSTEOARTHRITIS CONJUNCTIVITIS, BOTH EYES SURGICAL PROCEDURES: LEFT SHOULDER ARTHROPLASTY,1196 CHOLECYSTECTOMY OPEN HEART (CABG AND STENT APPLICATION) 1992, 2003 LAST VITALS Temp Pulse Resp BP Pulse Ox 97.6 F 68 16 123/75 95 01/20/21 05:36 01/20/21 05:36 01/20/21 05:36 01/20/21 05:36 01/20/21 05:36 TAKE THESE MEDICATIONS AT HOME Lisinopril (Lisinopril 5 Mg Tablet) 2.5 mg PO DAILY [facility] Last Admin: 01/20/21 08:47 Dose: 2.5 mg Documented by: Metformin HCl (Metformin Hcl 500 Mg Tablet) 1,000 mg PO BIDWM [facility] Last Admin: 01/20/21 08:47 Dose: 1,000 mg Documented by: Metoprolol Succinate (Metoprolol Succinate 25 Mg Tab.Er.24h) 25 mg PO DAILY [facility] Last Admin: 01/20/21 08:46 Dose: 25 mg Documented by: Nitroglycerin (Nitroglycerin 0.4 Mg Tab.Subl) 0.4 mg SL Q5MIN X 3 DOSES PRN PRN Reason: Chest Pain Simvastatin (Simvastatin 40 Mg Tablet) 40 mg PO DAILY [facility] Last Admin: 01/20/21 08:46 Dose: 40 mg Documented by: Sucralfate (Sucralfate 1 Gm Tablet) 1 gm PO BIDAC [facility] Last Admin: 01/20/21 05:39 Dose: 1 gm Documented by: Sucralfate (Sucralfate 1 Gm Tablet) 1 gm PO BEDTIME [facility] Last Admin: 01/19/21 20:24 Dose: 1 gm Documented by: Tamsulosin HCl (Tamsulosin Hcl 0.4 Mg Cap.Er.24h) 0.4 mg PO BID [facility] -- ( CHANGED) Last Admin: 01/20/21 08:46 Dose: 0.4 mg Documented by: NEXIUM 40 MG PO DAILY ALLERGIES No Known Allergies Allergy (Verified 01/18/21 11:34) DISCONTINUED MEDICATIONS Tamsulosin HCl (Tamsulosin Hcl 0.4 Mg Cap.Er.24h) 0.4 mg PO DAILY JUAN MANUEL ( CHANGED TO BID) NEW PRESCRIPTIONS: FLOMAX (tamsulosin)0.4 mg PO BID SMOKING: NON- APPLICABLE DISEASE SPECIFIC EDUCATION: BPH URINARY RETENTION DEHYDRATION HYPONATREMIA COVID 19 LAB REVIEW: 01/20/21 04:50 01/20/21 04:50 01/20/21 04:50: Sodium 134.5, Potassium 3.99, Chloride 104.5, Carbon Dioxide 24.7, Anion Gap 9.29, BUN 9.5, Creatinine 0.66, Estimated GFR (MDRD) 114.00, BUN/Creatinine Ratio 14.39, Glucose 128.1 H, Calcium 9.79, Total Bilirubin 0.50, AST 28.5, ALT 11.4, Alkaline Phosphatase 87.4, Total Protein 5.93 L, Albumin 3.16 L, Globulin 2.77, Albumin/Globulin Ratio 1.14 01/20/21 04:50: WBC 5.26, RBC 3.55 L, Hgb 10.6 L, Hct 30.2 L, MCV 85.1, MCH 29.9, MCHC 35.1, RDW Coeff of Edwige 12.4, Plt Count 105 L, Immature Gran % (Auto) 0.2, Neut % (Auto) 48.8, Lymph % (Auto) 36.9, [place] % (Auto) 8.9, Eos % (Auto) 4.8, Baso % (Auto) 0.4, Neut # (Auto) 2.6, Lymph # (Auto) 1.9, [place] # (Auto) 0.5, Eos # (Auto) 0.3, Baso # (Auto) 0.0, Immature Gran # (Auto) 0.0 PLAN: DISCHARGE: TODAY, JANUARY 20, 2021 RETURN TO [facility] TODAY, LIVES WITH [facility] FOR PT AND OT [facility] CONTACTED ACTIVITY: USE WHEEL CHAIR UNTIL HOME HEALTH CAN INSTRUCT ON USE OF WALKER FALL RISK. COVID 19 SOCIAL DISTANCING DIRECTED PER FACILITY GUIDELINES DIET: CONSISTENT GENI OCHOA FOLLOW UP: SEE DR. RODRIGUEZ/ GLENNY BECKER APRN/ OLIVERIO SHAFFER APRN IN THE OFFICE ON WEDNESDAY, JANUARY 27, 2021 @ 1100 AM CALL OFFICE IF ANY CONCERNS @ [phone] CODE STATUS: DO NOT RESUSCITATE MR. KAUR REMAINS ALERT AND ORIENTED X 4.HE HAS DENIED ANY PAIN OR DISTRESS. LUNGS CLEAR, NO SOA AND NO FURTHER REPORTS OF WHITE SPUTUM. PCR WAS DONE 01/18/2021 AND NO MARKERS WERE DETECTED. SKIN IS WARM AND DRY AND INTACT. HE IS VOIDING WELL SINCE CATHETER WAS REMOVED 01/19/2021. HE NO LONGER REPORTS ANY " FEELING BAD, DIFFICULTY URINATING OR N/V" SINCE STAY. HE HAS USED WALKER AT HOME. HE IS WEAK AND HAS USED A ROLLING WALKER AND PARTICIPATED WITH THERAPY WELL. [facility]IN[facility] WAS CONTACTED @ [facility] AND WAS INSTRUCTED TO FAX REFERRAL ATTENTION [facility] AND THIS WAS DONE. FLUID AND NUTRITIONAL INTAKE HAS BEEN FAIR. HE REMAINS CONTINENT OF BOWELS AND BLADDER. LAST BM 01/17/2021. MD GLENNY IBARRA APRN ALYCE HANNAN, APRN
--- NOTE | 2021-01-20 11:31 | PN ---
DATE OF SERVICE: 01/18/2021 SUBJECTIVE: 89 year old white male was seen the in the emergency room prior to hospitalization. The patient initially was seen in the patient's waiting area where he was noted to be dehydrated and according to the family had vomited all night. He was advised to go to the emergency room to get CMP done and further evaluation. The patient is also incontinent of urine. In the emergency room the patient was noted to be dehydrated and had 600cc of urine in the bladder. Nelson Catheter was inserted and the patient was hospitalized for further treatment. History and physical was done by Nurse Practitioner in my presence and management plan was formulated. TIME SPENT: More than 30 minutes. Plan and coordination of the patient's care discussed in the presence of nurse. MEGHAN
--- NOTE | 2021-01-20 13:01 | PN ---
DATE OF SERVICE: 01/19/2021 SUBJECTIVE: 89 year old white male hospitalized with urinary retention, dehydration and also vomiting and nausea. The patient is COVID negative. The patient says that he is feeling a lot better than yesterday. REVIEW OF SYSTEMS: CONSTITUTIONAL: No night sweats. No fatigue, malaise, lethargy. No fever or chills. HEENT: Eyes: No visual changes. No eye pain. No eye discharge. ENT: No runny nose. No epistaxis. No sinus pain. No sore throat. No odynophagia. No congestion. RESPIRATORY: No cough, no congestion. No hemoptysis. No shortness of breath. CARDIOVASCULAR: No angina symptoms. No CHF symptoms. No atypical chest pain for CAD. No palpitations. No PND. No orthopnea. GASTROINTESTINAL: No abdominal pain. No nausea or vomiting. No diarrhea or constipation. No hematemesis. No hematochezia. Appetite seems to have improved. GENITOURINARY: No urgency. No frequency. No dysuria. No hematuria. No obstructive symptoms. No discharge. No pain. No significant abnormal bleeding. MUSCULOSKELETAL: No musculoskeletal pain; no joint swelling. NEUROLOGICAL: No headache. No neck pain. No syncope. No seizures. No dizziness. PSYCHIATRIC: Not anxious. No depression. No suicidal thoughts. No homicidal thoughts. SKIN: No rash. No lesions. No wounds. ENDOCRINE: No unexplained weight loss. No weight gain. HEMATOLOGIC/LYMPHATIC: No anemia. No purpura. No petechiae. No prolonged or excessive bleeding. No palpable lymph nodes. PHYSICAL EXAMINATION: GENERAL: The patient is confused some but oriented to place and person. VITAL SIGNS: Temperature 98.1, pulse 78, respiratory rate 18, blood pressure 130/70 and pulse ox 94%. HEENT: Head normocephalic, atraumatic. Eyes: Extraocular muscles are intact. Pupils are equal, round and reactive to light and accommodation. Ears: No lesions. Nose appeared normal. Throat: No exudate or erythema. NECK: Supple. No JVD, no carotid bruit. No lymphadenopathy or thyromegaly. LUNGS: Decreased breath sounds but clear to auscultation. Percussion note normal. Chest symmetrical. HEART: S1, S2, no S3. No murmurs. No cyanosis or clubbing. No ascites. Pulses: Dorsalis pedis and posterior tibial pulses +1 to +2 bilaterally. ABDOMEN: Soft. Nontender. Bowel sounds active. No CVA tenderness. No mass felt. EXTREMITIES: No edema. Full range of motion of all extremities, equal. NEUROLOGIC: No focal deficit. Cranial nerves II through XII are grossly intact. No headache. No double vision. SKIN: Not dry. Intact. Turgor - A lot better. LYMPHATIC: No palpable lymph nodes/no lymphedema. MUSCULOSKELETAL: Normal joints with no swelling. Muscle tone is normal. LABS: Hgb 11.3, hct 32, WBC 6,500 normal differential, creatinine 0.6, BUN 9, potassium 3.9. ASSESSMENT: 1. Urinary retention PLAN: 1. Discontinue Nelson Catheter. The patient is already on Flomax 0.4mg twice a day 2. The patient is on IV fluids, Hydration status seems to have improved. 3. We will do U/A with culture and sensitivity. Initial urine didn't show any evidence of obvious urinary tract infection CONDITION: Stable. TIME SPENT: More than 30 minutes. Plan and coordination of the patient's care discussed in the presence of nurse. MEGHAN
--- NOTE | 2021-01-21 09:36 | DS ---
DATE OF SERVICE: 01/20/2021 FINAL DIAGNOSIS: BPH URINARY RETENTION- RESOLVED DEHYDRATION - RESOLVED GENERALIZED WEAKNESS HARD OF HEARING DIFFICULTY WALKING BALANCE IMPAIRED HISTORY: CHF CVA GOUT HYPERLIPIDEMIA HYPERTENSION HYPONATREMIA DEHYDRATION PNEUMONIA, LEFT LUNG PER CT FEVER EXTERNAL OTITIS DIABETES MELLITUS, TYPE 2 GERD ANEMIA OSTEOARTHRITIS CONJUNCTIVITIS, BOTH EYES SURGICAL PROCEDURES: LEFT SHOULDER ARTHROPLASTY,1196 CHOLECYSTECTOMY OPEN HEART (CABG AND STENT APPLICATION) 1992, 2003 LAST VITALS: Temp Pulse Resp BP Pulse Ox 97.6 F 68 16 123/75 95 01/20/21 05:36 01/20/21 05:36 01/20/21 05:36 01/20/21 05:36 01/20/21 05:36 DISCHARGE INSTRUCTIONS: DISCHARGE: TODAY, JANUARY 20, 2021 RETURN TO [facility] TODAY, LIVES WITH , [facility] FOR PT AND OT, NERY CONTACTED. MD FOLLOW UP: SEE DR. RODRIGUEZ/ GLENNY BECKER APRN/ OLIVERIO SHAFFER APRN IN THE OFFICE ON WEDNESDAY, JANUARY 27, 2021 @ 1100 AM. CALL OFFICE IF ANY CONCERNS @ [phone]. CODE STATUS: DO NOT RESUSCITATE. TAKE THESE MEDICATIONS AT HOME: Lisinopril (Lisinopril 5 Mg Tablet) 2.5 mg PO DAILY [facility] Last Admin: 01/20/21 08:47 Dose: 2.5 mg Documented by: Metformin HCl (Metformin Hcl 500 Mg Tablet) 1,000 mg PO BIDWM [facility] Last Admin: 01/20/21 08:47 Dose: 1,000 mg Documented by: Metoprolol Succinate (Metoprolol Succinate 25 Mg Tab.Er.24h) 25 mg PO DAILY [facility] Last Admin: 01/20/21 08:46 Dose: 25 mg Documented by: Nitroglycerin (Nitroglycerin 0.4 Mg Tab.Subl) 0.4 mg SL Q5MIN X 3 DOSES PRN PRN Reason: Chest Pain Simvastatin (Simvastatin 40 Mg Tablet) 40 mg PO DAILY [facility] Last Admin: 01/20/21 08:46 Dose: 40 mg Documented by: Sucralfate (Sucralfate 1 Gm Tablet) 1 gm PO BIDAC [facility] Last Admin: 01/20/21 05:39 Dose: 1 gm Documented by: Sucralfate (Sucralfate 1 Gm Tablet) 1 gm PO BEDTIME [facility] Last Admin: 01/19/21 20:24 Dose: 1 gm Documented by: Tamsulosin HCl (Tamsulosin Hcl 0.4 Mg Cap.Er.24h) 0.4 mg PO BID JUAN MANUEL -- ( CHANGED) Last Admin: 01/20/21 08:46 Dose: 0.4 mg Documented by: NEXIUM 40 MG PO DAILY ALLERGIES: No Known Allergies Allergy (Verified 01/18/21 11:34) DISCONTINUED MEDICATIONS: Tamsulosin HCl (Tamsulosin Hcl 0.4 Mg Cap.Er.24h) 0.4 mg PO DAILY JUAN MANUEL ( CHANGED TO BID) NEW PRESCRIPTIONS: FLOMAX (tamsulosin)0.4 mg PO BID SMOKING: NON- APPLICABLE DISEASE SPECIFIC EDUCATION: BPH URINARY RETENTION DEHYDRATION HYPONATREMIA COVID 19 LAB REVIEW: 01/20/21 04:50 01/20/21 04:50 01/20/21 04:50: Sodium 134.5, Potassium 3.99, Chloride 104.5, Carbon Dioxide 24.7, Anion Gap 9.29, BUN 9.5, Creatinine 0.66, Estimated GFR (MDRD) 114.00, BUN/Creatinine Ratio 14.39, Glucose 128.1 H, Calcium 9.79, Total Bilirubin 0.50, AST 28.5, ALT 11.4, Alkaline Phosphatase 87.4, Total Protein 5.93 L, Albumin 3.16 L, Globulin 2.77, Albumin/Globulin Ratio 1.14 01/20/21 04:50: WBC 5.26, RBC 3.55 L, Hgb 10.6 L, Hct 30.2 L, MCV 85.1, MCH 29.9, MCHC 35.1, RDW Coeff of Edwige 12.4, Plt Count 105 L, Immature Gran % (Auto) 0.2, Neut % (Auto) 48.8, Lymph % (Auto) 36.9, Bill[place] % (Auto) 8.9, Eos % (Auto) 4.8, Baso % (Auto) 0.4, Neut # (Auto) 2.6, Lymph # (Auto) 1.9, Bill[place] # (Auto) 0.5, Eos # (Auto) 0.3, Baso # (Auto) 0.0, Immature Gran # (Auto) 0.0 ACTIVITY: USE WHEEL CHAIR UNTIL HOME HEALTH CAN INSTRUCT ON USE OF WALKER FALL RISK. COVID 19 SOCIAL DISTANCING DIRECTED PER FACILITY GUIDELINES DIET: CONSISTENT [facility] H[facility]ITAL COURSE: The patient was admitted 01/18/2021 and discharged 01/20/2021. The patient went to the emergency room complaining of weakness and vomiting through the night. He also had some urinary incontinence along with urinary retention. CT of the abdomen and pelvic showed no acute process except significantly enlarged prostate. He initially had a Nelson Catheter placed after his bladder scanned showed 600cc after voiding. This stayed in for about 24 hours and we increased his Flomax to BID which has improved. The Nelson was discontinued yesterday. He has voided multiple times since then. He states the retention has improved. He was started on IV fluids normal saline at 75cc an hour. U/A did show trace blood however no signs of infection however he was initially started on Rocephin 1 gram IV daily incase there was a urinary tract infection. Kidney function is normal. BUN of 9.5, creatinine 0.66, hgb stable at 10.6. The patient has been eating well and reports that he is feeling well today. He does have some weakness just due to aging and being ill. He has agreed to have Home Health come and to [facility]. He will discharged home with no additional medications except the increase in Flomax to 0.4mg BID. We will followup with him closely. TIME SPENT: More than 60 minutes. MEGHAN
--- NOTE | 2021-01-21 10:37 | OTDC ---
Date of Evaluation:01/18/21 Diagnosis:[Urinary retention, vomiting] Number of visits:[3] Last Date of Service:[01/20/21] Reason For Discharge:[Pt discharged to home.] Discharge Summary:[Pt to receive home health therapy after discharge.] MEGHAN
--- NOTE | 2021-01-24 09:54 | PN ---
DATE OF SERVICE: 01/20/2021 SUBJECTIVE: The patient is seen and examined with the Nurse Practitioner. The patient is feeling a lot better. The Nelson was discontinued and he was able to void. He is on Flomax 0.4mg BID. The patient's status has improved. His gastritis has resolved. Condition: Stable. TIME SPENT: More than 30 minutes. Plan and coordination of the patient's care discussed in the presence of nurse. MEGHAN
--- NOTE | 2021-01-24 09:55 | PN ---
01/18/2021: Level 5 01/19/2021: Intermediate 01/20/2021: D as in discharge MTDD
== END 2021-01-20 12:40 | disposition home or self-care (01) | DRG 641 ==
LOC: ED 10:50 → MEDSURG A 14:42
PROVIDERS: ADMIT Internal Medicine; ATTEND Internal Medicine
DX: R26.9 Unspecified abnormalities of gait and mobility; R33.9 Retention of urine, unspecified; E86.0 Dehydration; I25.10 Atherosclerotic heart disease of native coronary artery without angina pectoris; Z20.822 Contact with and (suspected) exposure to COVID-19; R39.15 Urgency of urination; R32 Unspecified urinary incontinence; R10.9 Unspecified abdominal pain; I10 Essential (primary) hypertension; R11.2 Nausea with vomiting, unspecified; K52.9 Noninfective gastroenteritis and colitis, unspecified; E11.9 Type 2 diabetes mellitus without complications; R53.1 Weakness